=== PATIENT | female | born 1995 | race Caucasian/White ===

== ENCOUNTER 2022-07-17 14:42 | Outpatient (CLI) | payer OTHER, SELFPAY ==
--- NOTE | ~2022-07-17 | US_ITS ---
EXAMINATION: US retroperitoneal comp DATE: 07/17/2022 15:30 INDICATION: Right renal stone TECHNIQUE: Multiple grayscale and Doppler ultrasound images of the kidneys were obtained. COMPARISON: None. FINDINGS: The right kidney measures 9.6 x 3.8 x 4.3 cm. The left kidney measures 9.4 x 5.2 x 5.2 cm. The kidneys demonstrate normal parenchymal echogenicity. There is no hydronephrosis. The bladder is i ncompletely distended but normal in appearance. IMPRESSION: 1. Normal kidneys without hydronephrosis. Reviewed, dictated and finalized at location B.
--- NOTE | ~2022-07-17 | XR_ITS ---
EXAMINATION: XR abdomen/kub 1V DATE: 07/17/2022 15:10 INDICATION: Right kidney stone. Right flank pain. TECHNIQUE: A supine view of the abdomen on 2 radiographs was obtained. COMPARISON: CT abdomen and pelvis 12/02/2013 FINDINGS: There are no dilated loops of bowel. The kidneys are obscured by bowel. A 3 mm calcificatio n overlies right kidney. Surgical clips in the right upper quadrant are likely from cholecystectomy. There is internal fixation of right femur. IMPRESSION: 1. 3 mm calcification overlying right kidney that may be a right kidney stone. Reviewed, dictated and finalized at location A.
== END 2022-07-17 14:43 | disposition home or self-care (01) ==
PROVIDERS: Visit Provider Nurse Practitioner Adult Health
DX: N20.0 Calculus of kidney (principal)
CPT/HCPCS: 74018; 76770

== ENCOUNTER 2022-07-28 13:13 | Outpatient (CLI) | payer OTHER, SELFPAY ==
--- NOTE | ~2022-07-28 | CT_ITS ---
EXAMINATION: CT abdomen pelvis wo con DATE: 07/28/2022 13:48 INDICATION: Right flank pain which started on 07/14/2022. Diminished appetite. TECHNIQUE: Computed tomography (CT) of the abdomen and pelvis was performed without intravenous contr ast. Automated exposure control and iterative reconstruction technique were employed. Exam dose: 370 .93 mGy-cm total exam DLP. COMPARISON: 07/17/2022 retroperitoneal ultrasound examination 12/02/2013 CT abdomen pelvis noncontrast examination FINDINGS: The lung bases are clear. Normal heart size. No pericardial or pleural effusion. Status post cholecystectomy. The liver, spleen, pancreas, bile ducts and pancreatic duct are unremark able. Normal morphology of the adrenal glands. Approximately 4 mm nonobstructing upper pole right renal calculus. No other urinary tract calculus or hydroureteronephrosis of either kidney is noted. The urinary bladder is unremarkable. Uterus and adn exal areas are unremarkable. Normal caliber of the abdominal aorta. No intraperitoneal or retroperitoneal or pelvic mass lesion or adenopathy or ascites. No bowel obstruction, bowel wall thickening, pneumatosis or intraperitoneal free air. There is an intramedullary silas in the right femur and the tract of a former intramedullary silas of the left femur. No suspicious osteolytic or osteoblastic lesions. IMPRESSION: 4 mm nonobstructing upper pole right renal calculus Status post cholecystectomy Reviewed, dictated and finalized at Location A. Reviewed, dictated and finalized at location A.
== END 2022-07-28 13:14 | disposition home or self-care (01) ==
PROVIDERS: PCP Internal Medicine; Visit Provider Nurse Practitioner Adult Health
DX: N20.0 Calculus of kidney (principal); Z90.49 Acquired absence of other specified parts of digestive tract
CPT/HCPCS: 74176

== ENCOUNTER 2022-08-28 01:36 | Day surgery (SDC) | payer OTHER, SELFPAY ==
[2022-08-17 17:57] VITALS: BMI 22.6
--- NOTE | 2022-08-17 18:20 | PC.NURSE ---
Report to the Outpatient Waiting Room, entrance under the green pavilion located off [facility], at time 0930 on date 08/28/2022. Planned Procedure Time: 1130. Time changes happen often and if your time is changed the preop area will call you the afternoon before. - You and your visitor will be asked to self-screen and do not enter if you have any COVID symptoms. - Only one visitor is requested with a max of two and NO children visitors are allowed at this time. - The patient visitor may be requested to leave or wait in car when not with patient due to distancing restrictions. - A mask is optional within the hospital. Patients may have clear liquids (water, carbonated beverages, clear teas, apple juice) until 3 hours prior to surgery with a maximum of 20 ounces. 0830 - No food from midnight until time of surgery - Infants may have breast milk until 4 hours before surgery, formula 6 hours prior to surgery. - Children will be allowed to drink immediately following surgery. If applicable, please bring a bottle or sippy cup to assist with drinking. Juice, water, soda, and popsicles are readily available. For infants on formula, please bring formula the day of surgery. Pacifiers are allowed. Take the following medications with a SIP of water the morning of surgery: claudette, tramadol, effexor Medications to discontinue per physician multivitamine, supplements, fish oil Date to take last dose 08/25/22 Please no make-up, nail lithuanian, hairspray, perfume, deodorant, or body powder the day of surgery. No jewelry (including any body piercings) or valuables the day of surgery, leave them at home. Please take a shower or bath the night before, or the morning of, surgery with an antibacterial soap. Wear comfortable, loose fitting clothing. Children are encouraged to wear pajamas. - Jewelry must be removed prior to entering the operating room. Rings and piercings that are not removed may be cut off. - The hospital will not accept responsibility for valuables. - Please leave all valuables, including medications, at home the day of surgery. If you are going home after surgery, a licensed distribution driver must drive you home. - NO public transportation without another adult if you receive anesthesia. - We recommend that an adult stay with you for 24 hours following discharge. - We also recommend that you do not drive, make important decision, drink alcoholic beverages, or take any drugs that were not prescribed by your health care provider for at least 24 hours after your discharge time. For Pediatric surgeries, we recommend two adults accompany the child home. Follow any additional instructions given to you from your surgeon. If you or anyone in your household have experienced Covid symptoms in the past week, please notify your surgeon or the nurse liaison at the phone number below for possible testing. Telephone instructions given to Bethany Meléndez and asked if any additional questions and then verbalized understanding. Patient advised to call surgeon office or pre surgery nurse liaison [phone] if any additional questions.
--- NOTE | 2022-08-18 07:42 | PM.HPGS ---
History of Present Illness History of Present Illness Consent: Risks, benefits, and alternatives have been discussed and questions answered. Patient agrees to proceed with procedure. Chief complaint: Rt Renal Stone Narrative: Bethany Meléndez is a 27 year old female Who has had 1 episode of urolithiasis in the past. She now has a persistent cyst, somewhat atypical right flank pain. Imaging demonstrates a nonobstructing calcified 4 mm right renal calculus. Exhaustive evaluation for other causes of pain have been unyielding. In light of that we decided to proceed with right ESWL. She is aware of the risk including, but not limited to, residual fragments that were a require additional intervention, postoperative hematuria and perinephric hematoma Review of Systems Review of Systems: All systems reviewed & are unremarkable except as noted in HPI and below PMFSH Family History Family History (Updated 04/24/16 @ 23:21 by DOCTOR UNKNOWN) Mother Depression Patient's mother is in good health Family history of allergic disorder Family history of restless legs syndrome Father Patient's father is in good health Sibling Patient's brother is in good health Grandparent Family history of Alzheimer's disease Family history of malignant neoplasm of uterus, Onset Age: 72 Family history of malignant neoplasm of thyroid, Onset Age: 60 Social History Social History Smoking status: Never smoker Alcohol intake: never Living arrangements: with family Spiritual care concerns: No Meds Home Medications and Allergies Home Medications Medication Instructions Recorded Confirmed Type Adult Multi plus [place]-3 1 tab-cap PO BID 08/17/22 08/17/22 History Adults Multivitamin 1 tab-cap PO DAILY 08/17/22 08/17/22 History brompheniramine-phenylpropanolamine 1 tablet PO DAILY 08/17/22 08/17/22 History 4 mg-25 mg tablet calcium-vitamin D3 1 tablet PO DAILY 08/17/22 08/17/22 History cetirizine 10 mg capsule (Zyrtec) 10 mg PO HS 08/17/22 08/17/22 History cyclobenzaprine 10 mg tablet 10 mg PO TID PRN spasm 08/17/22 08/17/22 History dicyclomine 20 mg tablet 20 mg PO Q6H PRN Spasms 08/17/22 08/17/22 History drospirenone 3 mg-ethinyl 1 tablet PO DAILY 08/17/22 08/17/22 History estradiol 0.03 mg tablet (Marley) famotidine 20 mg tablet 20 mg PO BID 08/17/22 08/17/22 History fexofenadine 30 mg tablet 30 mg PO DAILY 08/17/22 08/17/22 History montelukast 10 mg tablet 10 mg PO HS 08/17/22 08/17/22 History (Singulair) tramadol 50 mg tablet 50 mg PO Q6H PRN Pain 08/17/22 08/17/22 History venlafaxine 75 mg capsule,extended 75 mg PO DAILY 08/17/22 08/17/22 History release 24 hr Allergies Allergy/AdvReac Type Severity Reaction Status Date / Time cephalexin Allergy Hives Verified 08/17/22 17:42 latex Allergy Hives Verified 08/17/22 17:42 mold Allergy Nasal Verified 08/17/22 17:42 Discharge red dye Allergy Hives Verified 08/17/22 17:42 morphine AdvReac Mild itching Verified 08/17/22 17:42 adhesive tape AdvReac Rash Verified 08/17/22 17:56 ENVIRONMENTAL ALLERGENS Allergy Mild Nasal Uncoded 08/17/22 17:42 Discharge Exam Const: General: no acute distress Resp: Effort & Inspection: normal respiratory effort GI: Inspection: non-distended GI Palp: No abdominal tenderness and No Guarding due to palpation present (GI) Auscultation: normal bowel sounds Assessment and Plan Assessment and plan (1) Right renal stone: Code(s): N20.0 - Calculus of kidney Status: Acute Assessment and Plan: Right ESWL
[2022-08-28] VITALS (11 sets, daily range): BP systolic 116–132; BP diastolic 76–95; PULSE 90–108; RESP 6–18; TEMP 36.6; O2SAT 97–100
--- NOTE | ~2022-08-28 | XR_ITS ---
XR fluoroscopy no charge Clinical information: Stone extraction. TECHNIQUE: Fluoroscopy used during right stone extraction performed by [Rashel Mas MD] o n 08/28/2022. 24 seconds of fluoroscopy time with 1 images captured. ] FINDINGS: Correlate with procedure note. IMPRESSION: Fluoroscopy used during stone extraction procedure. Reviewed, dictated and finalized at location A. TH PROGRAM ANALYST
--- NOTE | 2022-08-28 06:45 | WPDHPUPDATE1 ---
History and Physical Update Update Date/Time: 08/28/22 06:45 History and Physical has been reviewed, including an updated exam of the patient. There are NO changes in the patient's condition. Risks, benefits, and alternatives have been discussed and questions answered. Patient agrees to proceed with procedure.
--- NOTE | 2022-08-28 10:20 | WPDANESEPPF ---
Anes - Initial Pre Proc Eval Procedure: Operation Date: 08/28/22 11:30 Proposed Procedures p Right Extracorporeal Shock Wave Lithotripsy - Rashel Mas MD s Cystoscopy with Possible Right Stent Placement - Rashel Mas MD Date/Time: 08/28/22 10:20 Surgeon: Rashel Mas MD Pre Op Diagnosis: Rt Renal Stone Patient Data Age: 27 Gender: F Height: 1.68 m Weight: 63.6 kg Allergies Allergy/AdvReac Type Severity Reaction Status Date / Time cephalexin Allergy Hives Verified 08/17/22 17:42 latex Allergy Hives Verified 08/17/22 17:42 mold Allergy Nasal Verified 08/17/22 17:42 Discharge red dye Allergy Hives Verified 08/17/22 17:42 morphine AdvReac Mild itching Verified 08/17/22 17:42 adhesive tape AdvReac Rash Verified 08/17/22 17:56 ENVIRONMENTAL ALLERGENS Allergy Mild Nasal Uncoded 08/17/22 17:42 Discharge Home Medications Medication Instructions Recorded Confirmed Type Adult Multi plus [place]-3 1 tab-cap PO BID 08/17/22 08/17/22 History Adults Multivitamin 1 tab-cap PO DAILY 08/17/22 08/17/22 History brompheniramine-phenylpropanolamine 1 tablet PO DAILY 08/17/22 08/17/22 History 4 mg-25 mg tablet calcium-vitamin D3 1 tablet PO DAILY 08/17/22 08/17/22 History cetirizine 10 mg capsule (Zyrtec) 10 mg PO HS 08/17/22 08/17/22 History cyclobenzaprine 10 mg tablet 10 mg PO TID PRN spasm 08/17/22 08/17/22 History dicyclomine 20 mg tablet 20 mg PO Q6H PRN Spasms 08/17/22 08/17/22 History drospirenone 3 mg-ethinyl 1 tablet PO DAILY 08/17/22 08/17/22 History estradiol 0.03 mg tablet (Marley) famotidine 20 mg tablet 20 mg PO BID 08/17/22 08/17/22 History fexofenadine 30 mg tablet 30 mg PO DAILY 08/17/22 08/17/22 History montelukast 10 mg tablet 10 mg PO HS 08/17/22 08/17/22 History (Singulair) tramadol 50 mg tablet 50 mg PO Q6H PRN Pain 08/17/22 08/17/22 History venlafaxine 75 mg capsule,extended 75 mg PO DAILY 08/17/22 08/17/22 History release 24 hr Patient hx anesthesia problems: none Family hx anesthesia problems: none Results Review: All pre-operative results and documents have been reviewed as part of the pre-operative evaluation. [facility] Family History Family History Mother Depression Patient's mother is in good health Family history of allergic disorder Family history of restless legs syndrome Father Patient's father is in good health Sibling Patient's brother is in good health Grandparent Family history of Alzheimer's disease Family history of malignant neoplasm of uterus, Onset Age: 72 Family history of malignant neoplasm of thyroid, Onset Age: 60 Social History Social History Smoking status: Never smoker Alcohol intake: never Living arrangements: with family Spiritual care concerns: No Anes - Eval Final PreProcedure Day of Procedure 08/28/22 10:20 Patient weight: normal Heart: regular rate and rhythm Lungs: clear to auscultation Airway: Mallampati scale class III and special considerations poor opening Neurological: alert and oriented Last oral intake: >/= 8 hours ASA classification: III Emergent: no Anesthetic plan: proceed Anesthesia type and monitoring: general LMA and standard monitoring Results Review: All pre-operative results and documents have been reviewed as part of the pre-operative evaluation. Informed Consent: The patient's anesthetic plan and its attendant risks and benefits were discussed with the patient/family/POA. Questions were solicited and answers provided to the satisfaction of the patient/family/POA.
[2022-08-28] MEDS: LACTATED RINGERS 1,000 ML 30 ML IV CONT ×2 (10:30→13:12)
[2022-08-28 11:08] LABS: Beta HCG Quantitative < 2.39 mIU/ML
[2022-08-28] MEDS: levoFLOXacin 500 MG/D5W 100 ML 500 MG/100 ML BAG 100 MG IVPB (11:08)
[2022-08-28 11:11] LABS: INR 1.1; Prothrombin Time 13.8 Seconds (11.1-14.7)
[2022-08-28 11:12] LABS: Partial Thromboplastin Time 26.8 SECONDS (22.3-36.8)
--- NOTE | 2022-08-28 11:36 | W.PM.PROC2 ---
Procedure Note - Detailed Date of Procedure 08/28/22 Pre-op Diagnosis Rt Renal Stone Post-op Diagnosis Same Procedure Performed Cystoscopy, right ureteroscopy with stone extraction Surgeon Rashel Mas MD Anesthesia General Description of Procedure The patient was brought to the operative suite where she is prepped and draped in a routine sterile fashion while in the dorsal lithotomy position after the uneventful induction of a general LMA anesthetic. A 19F rigid cystoscope was placed in the bladder. The patient had no evidence of urethral stricture or bladder neck contracture. The bladder mucosa was endoscopically normal without hyperemia or neoplasm. There was a single, orthotopic ureteral orifice bilaterally. A 0.035 glidewire was advanced into the right renal pelvis under fluoroscopy. The distal ureter was dilated with an 8F/10F ureteral dilator. Ureteroscopy was undertaken with a 7.5F flexible ureteroscope and the 3-4mm right upper calyceal stone was extracted with ease using a 1.9F Escape disposable stone basket. Due to the ease of this manipulation I opted not to place a ureteral stent. The patient's bladder was emptied and was taken to the recovery room having tolerated this procedure well. Drains No Packing Yes Pathology Yes Complications No immediate complications Condition Stable
[2022-08-28] MEDS: ONDANSETRON INJ 4 MG/2 ML VIAL IV PUSH (11:42)
[2022-08-28] MEDS: fentaNYL CITRATE INJ (*CRX) 100 MCG/2 ML VIAL 25 MCG IV PUSH ×8 (11:45→13:01)
[2022-08-28] MEDS: MIDAZOLAM HCL (*CRX) 2 MG/2 ML VIAL 1 MG IV PUSH (11:59)
[2022-08-28] MEDS: MEPERIDINE HCL INJ (*CRX) 50 MG/ML AMPUL IV PUSH (12:47)
[2022-08-28] MEDS: oxyCODONE HCL (*CRX) 5 MG TAB IR PO (13:32)
== END 2022-08-28 14:50 | disposition home or self-care (01) ==
PROVIDERS: Anesthesiology; PCP Internal Medicine; Visit Provider Urology
PROC: (CPT 50590; principal; 2022-08-28 11:30)
DX: N20.0 Calculus of kidney (principal)
CPT/HCPCS: 52352; 36415; 82365; 84702; 85610; 85730; 88300; 99199; A9270; C1769; J1100; J1885; J1956; J2175; J2250; J2405; J2704; J3010; J7030; J7120

== ENCOUNTER 2022-08-30 09:16 | Emergency (ER) | payer OTHER, SELFPAY ==
--- NOTE | ~2022-08-30 | CT_ITS ---
EXAMINATION: CT abdomen pelvis wo con DATE: 08/30/2022 11:30 INDICATION: CT dated 07/28/2022 TECHNIQUE: Computed tomography (CT) of the abdomen and pelvis was performed without intravenous contr ast. The dose-length product was 505.57 mGy-cm. Automated exposure control and iterative reconstructi on technique were employed. COMPARISON: CT dated 07/28/2022 FINDINGS: Lung bases are unremarkable. Heart size normal. No pleural or pericardial effusions. There are cholecystectomy clips. The liver, spleen, pancreas, adrenal glands and left kidney are unremarkab le. There is a 2 mm stone in the lower pole of the right kidney. There are cholecystectomy clips. The re is a normal amount of extraluminal gas anterior to the right ureter, image [id number]. This may relate to recent ureteroscopy. No significant abnormal free fluid. There is a small fat-containing umbilical hernia. Nonobstructive bowel gas pattern. Moderate colonic fecal loading. There is mild right urothe lial thickening. There is an intramedullary silas in the right femur, partially visualized. No focal ly tic or sclerotic lesions IMPRESSION: 1. Mild right urothelial thickening proximally with small amount of extraluminal gas anterior to the right ureter in the upper abdomen, possibly related to recent ureteroscopy. 2: Punctate nonobstructing 2 mm right renal stone . Reviewed, dictated and finalized at location A. MILL SUPERVISOR IMPRESSION: 1. Mild right urothelial thickening proximally with small amount of extralumina l gas anterior to the right ureter in the upper abdomen, possibly related to re cent ureteroscopy. 2: Punctate nonobstructing 2 mm right renal stone .
[2022-08-30 09:16] VITALS: BP 147/102; PULSE 92; RESP 17; TEMP 36.9; O2SAT 100
[2022-08-30 09:29] LABS: Basophils Absolute Auto 0.1 K/mm3 (0.0-0.1); Basophils Percent Auto 0.9 % (0.2-1.2); Eosinophils Absolute Auto 0.2 K/mm3 (0-0.3); Eosinophils Percent Auto 2.5 % (0-4.4); Hematocrit 34.3 % (37.0-47.0); Hemoglobin 11.1 g/dL (12.0-15.0); Immature Granulocyte Absolute 0.03 K/mm3 (0.00-0.031); Immature Granulocyte Percent A 0.4 % (0-0.5); Lymphocytes Absolute Auto 3.63 K/mm3 (0.9-3.2); Lymphocytes Percent Auto 52.7 % (18.3-44.2); Mean Corpuscular HGB Conc 32.4 g/dl (32-36); Mean Corpuscular Hemoglobin 30.7 pg (26-34); Mean Platelet Volume 8.9 fl (7.4-10.4); Monocytes Absolute Auto 0.5 K/mm3 (0.1-0.6); Monocytes Percent Auto 7.5 % (2.6-8.5); Neutrophils Absolute Auto 2.5 K/mm3 (1.3-6.7); Platelet Count Result 237 k/mm3 (150-375); Red Blood Count 3.61 M/mm3 (4.2-5.4); Red Cell Distribution Width 13.2 % (11.5-14.5); White Blood Count 6.9 K/mm3 (4.5-10.0)
[2022-08-30 09:40] LABS: Alanine Aminotransferase 36 U/L (6-35); Alkaline Phosphatase 82 U/L (38-126); Anion Gap 7 mmol/L (8-16); Aspartate Amino Transferase 27 U/L (14-36); Bilirubin,Total 0.3 mg/dL (0.2-1.3); Blood Urea Nitrogen 7 mg/dL (7-17); Carbon Dioxide 25 mmol/L (22-30); Chloride 105 mmol/L (98-107); Estimated CRCL calculation 97 ml/min; Estimated Glomerular Filt Rate > 60; Glucose 98 mg/dL (65-110); Potassium 3.9 mmol/L (3.4-5.0); Sodium 137 mmol/L (137-145)
--- NOTE | 2022-08-30 09:57 | ED.ABDPAIN ---
HPI - Abdominal Pain General Chief Complaint: Abdominal Pain Stated Complaint: kidney stone Time Seen by Provider: 08/30/22 09:24 Source: patient and old records reviewed Mode of arrival: ambulatory Limitations: no limitations History of Present Illness HPI narrative: Patient is a 27-year-old female who presents the ED with report of right flank and abdominal pain. Patient underwent a cystoscopy with right ureteroscopy and stone extraction on Wednesday, 08/[address] Mas. Last night into today, she developed worsening pain to her R flank and R sided abdomen. She describes the pain as a spasm. She currently rates pain 7 out of 10 on the pain scale. Patient has also noticed blood in her urine and nausea. Denies any significant dysuria, vomiting. Denies fever or chills. She took 2 hydrocodone prior to arrival. Related Data Home Medications Medication Instructions Recorded Confirmed Adult Multi plus [place]-3 1 tab-cap PO BID 08/17/22 08/17/22 Adults Multivitamin 1 tab-cap PO DAILY 08/17/22 08/17/22 brompheniramine-phenylpropanolamine 1 tablet PO DAILY 08/17/22 08/17/22 4 mg-25 mg tablet calcium-vitamin D3 1 tablet PO DAILY 08/17/22 08/17/22 cetirizine 10 mg capsule (Zyrtec) 10 mg PO HS 08/17/22 08/17/22 cyclobenzaprine 10 mg tablet 10 mg PO TID PRN spasm 08/17/22 08/17/22 dicyclomine 20 mg tablet 20 mg PO Q6H PRN Spasms 08/17/22 08/17/22 drospirenone 3 mg-ethinyl 1 tablet PO DAILY 08/17/22 08/17/22 estradiol 0.03 mg tablet (Marley) famotidine 20 mg tablet 20 mg PO BID 08/17/22 08/17/22 fexofenadine 30 mg tablet 30 mg PO DAILY 08/17/22 08/17/22 montelukast 10 mg tablet 10 mg PO HS 08/17/22 08/17/22 (Singulair) tramadol 50 mg tablet 50 mg PO Q6H PRN Pain 08/17/22 08/17/22 venlafaxine 75 mg capsule,extended 75 mg PO DAILY 08/17/22 08/17/22 release 24 hr Allergies Allergy/AdvReac Type Severity Reaction Status Date / Time Sulfa (Sulfonamide Allergy Severe Hives Verified 08/30/22 09:27 Antibiotics) cephalexin Allergy Hives Verified 08/30/22 09:27 latex Allergy Hives Verified 08/30/22 09:27 mold Allergy Nasal Verified 08/30/22 09:27 Discharge red dye Allergy Hives Verified 08/30/22 09:27 adhesive tape AdvReac Rash Verified 08/30/22 09:27 ENVIRONMENTAL ALLERGENS Allergy Mild Nasal Uncoded 08/30/22 09:27 Discharge Review of Systems Review of Systems: CONSTITUTIONAL: Denies fever, chills, or sweats. CARDIOVASCULAR: Denies chest pain. RESPIRATORY: Denies dyspnea. GASTROINTESTINAL: Reports R sided ABD pain, nausea. Denies vomiting, constipation, or diarrhea. GENITOURINARY: Reports hematuria. Denies dysuria. MUSCULOSKELETAL: Reports R flank pain. All systems reviewed & are unremarkable except as noted in HPI and below PMFSH Past Medical History Medical History (Updated 08/30/22 @ 12:27 by Chely Phipps PA-C) Shelly-Danlos syndrome Kidney stones Surgical History Surgical History (Updated 08/30/22 @ 12:25 by Chely Phipps PA-C) History of extraction of renal calculus History of surgery on lower extremity silas in R femur History of ureteroscopy Family History Family History Mother Depression Patient's mother is in good health Family history of allergic disorder Family history of restless legs syndrome Father Patient's father is in good health Sibling Patient's brother is in good health Grandparent Family history of Alzheimer's disease Family history of malignant neoplasm of uterus, Onset Age: 72 Family history of malignant neoplasm of thyroid, Onset Age: 60 Social History Social History Smoking status: Never smoker Alcohol intake: never Spiritual care concerns: No Exam Narrative: GENERAL: Well-nourished, non-toxic, in mild acute distress due to pain. HEAD: Normocephalic, atraumatic. NECK: Supple. No adenopathy, no masses. RESPIRA
--- NOTE | 2022-08-30 10:00 | PC.NURSE ---
patent unable to urinate at this time, will attempt again once fluids have been going.
[2022-08-30] MEDS: SODIUM CHLORIDE 0.9% IV 1,000 ML 999 ML IV CONT (10:06)
[2022-08-30] MEDS: ONDANSETRON INJ 4 MG/2 ML VIAL IV PUSH (10:07)
[2022-08-30] MEDS: MORPHINE SULFATE (*CRX) 4 MG/ML INJ IV PUSH (10:09)
[2022-08-30 10:11] VITALS: BP 123/89; PULSE 94; RESP 14; O2SAT 99
[2022-08-30 10:13] VITALS: BP 123/89; PULSE 94; RESP 14; O2SAT 99
[2022-08-30 11:22] LABS: Appearance Urine Clear (Clear); Bilirubin Urine Negative (Negative); Blood Urine 3+ (Negative); Color Urine Yellow (Yellow); Glucose Urine UA Negative (Negative); Ketones Urine Negative (Negative); Leukocyte Esterase Ur Negative LEU/UL (Negative); Nitrate Urine Negative (Negative); Protein Urine 1+ mg/dL (Negative); Urobilinogen Urine 0.2 mg/dL (<2.0)
[2022-08-30 11:38] LABS: Bacteria Urine Trace /hpf; Mucus Urine Rare /lpf; RBC Urine >75 /hpf (0-2); Squamous Epithelial Cell Urine Rare /hpf (Few); WBC Urine 0-3 /hpf
[2022-08-30 11:39] LABS: Add Urine Microscopic? YES
[2022-08-30 11:50] VITALS: BP 124/76; PULSE 97; RESP 18; O2SAT 100
[2022-08-30] MEDS: KETOROLAC 15 MG/ML VIAL (*BKC) IV PUSH (12:15)
== END 2022-08-30 12:51 | disposition home or self-care (01) ==
PROVIDERS: Emergency Medicine; Emergency Provider Physician Assistant; PCP Internal Medicine
DX: N20.0 Calculus of kidney (principal); Q79.60 Ehlers-Danlos syndrome, unspecified; Z87.442 Personal history of urinary calculi; R93.41 Abnormal radiologic findings on diagnostic imaging of renal pelvis, ureter, or bladder; Z98.890 Other specified postprocedural states
CPT/HCPCS: 36415; 74176; 80053; 81001; 81025; 85025; 96361; 96374; 96375; 99284; J1885; J2270; J2405; J7030

== ENCOUNTER 2025-01-10 07:38 | Emergency (ER) | payer OTHER, SELFPAY ==
--- OUTSIDE RECORDS SUMMARY | 2025-01-10 07:42 | XMS_ITS | Clinical Summary ---
Author Organization [facility] Address [address] [place] [address] Phone Care Team Providers Care Pattern Illustrator Name Role Phone Stephane Cade MD Primary Care Provider [phone] Allergies No known active allergies Medications omeprazole (PRILOSEC) 20 mg Oral TbECIndications: IBS (irritable bowel syndrome),Nausea with vomiting Take by mouth daily before breakfast. Active metoprolol succinate ER 24 hour (TOPROL XL) 25 mg Oral tabletIndication s:IBS (irritable bowel syndrome),Nausea with vomiting Take 25 mg by mouth daily. Active NORETH A-ET ESTRA/FE FUMARATE (LOESTRIN 24 FE ORAL)Indications :IBS (irritable bowel syndrome),Nausea with vomiting Take 1 Tab by mouth daily. Active fexofenadine (SUSANNA) 180 mg Oral tabletIndication s:IBS (irritable bowel syndrome),Nausea with vomiting Take 180 mg by mouth daily. Active multivitamin (DAILY-MIRANDA) Oral tabletIndication s:IBS (irritable bowel syndrome),Nausea with vomiting Take 1 Tab by mouth daily. Active BIOTIN ORALIndications: IBS (irritable bowel syndrome),Nausea with vomiting Take 1 Tab by mouth daily. Active CHOLECALCIFEROL, VITAMIN D3, (VITAMIN D-3 ORAL)Indications :IBS (irritable bowel syndrome),Nausea with vomiting Take 1 Tab by mouth daily. Active ONDANSETRON HCL (ZOFRAN ORAL)Indications :IBS (irritable bowel syndrome) Take by mouth. Active amitriptyline (ELAVIL) 10 mg Oral tablet Take 1 Tab by mouth daily at bedtime. 90 Tab 3 05/03/2012 Active Active Problems Problem Noted Date Diagnosed Date IBS (irritable bowel syndrome) 11/19/2011 Nausea with vomiting 11/19/2011 Social History Tobacco Use Types Packs/Day Years Used Date Smoking Tobacco: Never Alcohol Use Standard Drinks/Week Comments No 0 (1 standard drink = 0.6 oz pur e alcohol) Comments Unknown Sex and Gender Information Value Date Recorded Sex Assigned at Not on file Legal Sex Female 5:32 AM SOCIAL PSYCHOLOGIST Gender Identity Not on file Sexual Orientation Not on file Occupation Industry Job Start Date Job End Date Not on file Not on file Not on file Not on file Last Filed Vital Signs Vital Sign Reading Time Taken Comments Blood Pressure 122/66 05/03/2012 4:35 PM CDT Pulse 64 05/03/2012 4:35 PM CDT Temperature 37.3 C (99.1 F) 12/10/2011 7:22 AM CDT Respiratory Rate 16 12/10/2011 8:32 AM CDT Oxygen Saturation 100% 12/10/2011 8:32 AM CDT Inhaled Oxygen Concentration - - Weight 66.2 kg (146 lb) 05/03/2012 4:35 PM CDT Height 170.2 cm (5' 7 ) 05/03/2012 4:35 PM CDT Body Mass Index 22.87 05/03/2012 4:35 PM CDT Plan of Treatment Health Maintenance Due Date Last Done Comments DTAP/TDAP/TD VACCINES (1 - Tdap) 2013 HEPATITIS B VACCINES (1 of 3 - 19+ 3-dose series) 2013 HPV/Cotest (21-29) 2015 PAP SMEAR 2015 CERVICAL CANCER SCREENING 2024 HPV/Cotest (30-65) 2024 PAP SMEAR 2024 INFLUENZA VACCINE (#1) 2024 HPV VACCINES Aged Out No longer eligi ble based on patient's age to complete this topic PNEUMOCOCCAL VACCINE 0-49 YEARS Aged Out No longer eligible based on patient's age to complete this topic Advance Directives For more information, please contact: [phone] * Full Code (Latest Code Status on File) Date Activated Date Inactivated Comments 12/10/2011 7:13 AM 12/11/2011 2:01 AM Care Teams Pattern Illustrator Relationship Specialty Start Date End Date Stephane Cade MD [address] [place] [address] PCP - General Internal Medicine 11/19/11
--- OUTSIDE RECORDS SUMMARY | 2025-01-10 07:42 | XMS_ITS | Data Portability ---
Author Organization [place] [facility],, Tiffany price Address [address] [place] [address] Assessment Encounter Date Assessment Date Assessment LastModified by Organization Details LastModified Time 01/22/2023 01/22/2023 patient with a history of pots and mast cell activation. Will check some laboratory data and try to start her on Xolair.the indication for the Xolair is refractory urticaria. [email or web address] Not available 01/22/2023 14:36:04 Plan of Treatment Reminders Order Date Submit Date Provider Last Modified By Organization Details Last Modified Time Details Appointments None recorded. Lab tryptase, serum 2022 023 SRIDEVI [facility] (Centralized Electronic Ordering - All Locations), Patient Can Go To The Location Of Their Choice, 14:36:43 histamine, serum or plasma 2022 023 SRIDEVI [facility] (Centralized Electronic Ordering - All Locations), Patient Can Go To The Location Of Their Choice, 14:36:43 TSH + free T4, serum 2022 023 SRIDEVI [facility] (Centralized Electronic Ordering - All Locations), Patient Can Go To The Location Of Their Choice, 14:36:42 thyroid peroxidase (tpo) Ab, serum 2022 023 SRIDEVI [facility] (Centralized Electronic Ordering - All Locations), Patient Can Go To The Location Of Their Choice, 14:36:44 thyroglobul in Ab, serum 2022 023 SRIDEVI [facility] (Centralized Electronic Ordering - All Locations), Patient Can Go To The Location Of Their Choice, [address] 14:36:44 Referral None recorded. Procedures None recorded. Surgeries None recorded. Imaging None recorded. Medication Orders None recorded. Patient TargetsNo targets recorded. Patient Instructions Encounter Date Encounter Id Patient Instructions Last Modified By Organization Details Last Modified Time 01/22/2023 [id number] hypothyroidism: care instructions bobby Not available 01/22/2023 12:15:16 Reason for Referral None Reported. Results Created Date Observation Date Name Description Value Unit Range Abnormal Flag Note LastModifiedBy Organization Detail LastModifiedTime 01/23/2001/23/2023 TSH+F REE T4 TSH 2.820 uIU/m L 0.450- 4.500 Not Available [facility] ([facility]) [address] [place], [address], 01/26/2023 14:36:42 01/23/2001/23/2023 TSH+F REE T4 T4,free(dire ct) 0.96 NG/dL 0.82-1 .77 Not Available [facility] ([facility]) [address] [place], [address], 01/26/2023 14:36:42 01/23/2001/24/2023 TRYPT ASE tryptase 4.8 ug/L 2.2-13 .2 Not Available [facility] ([facility]) [address] [place], [address], 01/26/2023 14:36:43 01/23/2001/26/2023 HISTA MINE, PLASM A histamine, plasma 0.70 NG/mL <1.00 Not Available [facility] ([facility]) [address] [place], [address], 01/26/2023 14:36:43 01/23/2001/25/2023 THYRO GLOBU KENDELL ANTIB JASON thyroglobuli n antibody <1.0 IU/mL 0.0-0. 9 Thyro globu kendell Antib jason measu red by Beckm an Coult er Metho dolog y Not Available [facility] ([facility]) [address], [place], [address], 01/26/2023 14:36:44 01/23/20 23 01/23/2023 THYRO ID PEROX IDASE (TPO) AB thyroid peroxidase (tpo) Ab 13 IU/mL 0-34 Not Available [facility] ([facility]) [address], [place], [address], 01/26/2023 14:36:44 Result Notes None recorded. Medical Equipment None Reported. Allergies Allergen ID Allergen Name Allergen Category Reaction Reaction Severity Criticality Documentation Date Start Date Code Code System Note Provider Name and Address Organization Details Recorded Time 82859 latex environme nt,medica tion Not available Not available Not available 01/22/2023 11031 91 RxNorm itcel verdin null, [place] [facility], 3 11:54:09 31343 cephalexi n medicatio n Not available Not available Not available 01/22/2023 2231 RxNorm itcel verdin null, [place] [facility], 3 11:55:03 32576 Substance with sulfonami de structure and antibacte rial mechanism of action (substanc e) medicatio n Not available Not available Not available 01/22/2023 90310 8003 SNOMED itcel verdin null, [place] [facility], 3 11:55:11 Vitals Date Recorded Body height Body mass index (BMI) Body weight Heart rate Oxygen saturation Oxygen saturation in Arterial blood by Pulse oximetry Respiratory rate Body temperature Systolic blood pressure Diastolic blood pressure Provider Name and Address Organization Details Last Updated DateTime 3 168.91 cm 26.2 kg/m2 00529.7 4 g 118 /min 99 % 99 % 20 /min 97.4 [degF] 126 mm[Hg] 86 mm[Hg] itcel verdin [place] [facility], 3 11:53:53 Social History Question Answer Notes LastModified by Organizat ion Details LastModified Time Tobacco Smoking Status Never Smoker itcel verdin null, [place] [facility], 01/22/2023 11:55:21 What Is Your Level Of Alcohol Consumption? None Information not available 01/22/2023 What Was The Date Of Your Most Recent Tobacco Screening? 01/22/2023 [email or web address] Information not available 01/22/2023 Do You Use Any Illicit Or Recreational Drugs? No [email or web address] Information not available 01/22/2023 Do You Or Have You Ever Used Any Other Forms Of Tobacco Or Nicotine? No [email or web address] Information not available 01/22/2023 Sex: Unknown Functional Status None recorded. Mental Status None recorded. Family History Nothing Reported. Medical History No medical history recorded. Gynecological HistoryNo gynecological history recorded. Obstetrics History GPAL:G 0 P 0 0 0 0 Past Encounters Encounter ID Performer Location Encounter Start Date Encounter Closed Date Diagnosis/Indication Diagnosis SNOMED-CT Code Diagnosis ICD10 Code Diagnosis Note [id number] Rashel lawrence MD OFFICE [address] [place] [id number] 01/22/2023 11:37:42 01/22/2023 12:33:32 Mast cell disorder 184953345 D89.44 Idiopathic urticaria 422 47578 L50.1 refractory urticaria in spite of antihistam ine blockade will start on Xolair Hypothyroidism 31806733 E03.9 Health Concerns Section Related Observation LastModified by Organization Detai ls LastModified Time None Recorded Concern Status LastModified by Organization Details LastModified Time None Recorded Advance Directives Directive None Recorded Payers Encounter Date Sequence Insurance Name Policy Number Policy Menendez Covered Member ID Menendez Member ID Guarantor Name 01/22/2023 2 [facility] [id number] Cuco Meléndez [id number] Bethany Meléndez 01/22/2023 1 [facility] [id number] Adali Meléndez [id number] Bethany Meléndez Notes Date Note Type Note Provider Name and Address Organization Details Recorded Time 01/22/2023 text/html Bethany is a delightful 27-year-old woman with a history of [place]. 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 She had a workup about 10 years ago for mastocytosis which was negative. But after she had a bug bite that got infected a year ago she feels like things have been activated. She has since seen Dr. Pathak who has placed her on antihistamines both H1 and H2 blockers. She is taking Miguelina 2 tablets per day and famotidine. In spite of these medications she continues to have daily hives. The hives are characterized as being itchy, erythematous, and relatively evanescent lasting for only a day or 2. These hives continue in spite of the aggressive antihistamine blockade. Rashel Warren MD [address], [place], [address], [facility], 01/22/2023 14:44:26 OBGyn Episode No OBEpisode recorded.
--- OUTSIDE RECORDS SUMMARY | 2025-01-10 07:42 | XMS_ITS | Clinical Summary ---
Author Organization [facility] Address [address] [place] [address] Care Team Providers Care [employer] Principal Name Role Phone Mervin Garcia MD Primary Care Provider [phone] Source Comments [facility],non-owned Affiliates and Associated Physician Practices is amultiple site organization consisting of ambulatory clinics and hospital sitesin [place], [place], [place] and [place]. This disclosure is being madepursuant to the Care Everywhere program and may not contain all information available regarding this patient. Last updated 18.[facility] Allergies Active Allergy Reactions Criticality Noted Date Comments Cephalosporins Rash Medium 04/13/2022 Latex Rash Medium 04/19/2018 Morphine Itching Low 07/18/2019 Sulfamethoxazole W-Trimethoprim Diarrhea,Vomiting Low 05/14/2021 Medications * Be aware that medications may not be up to date on this document. Alwaysverify current medications with the patient. Fexofenadine HCl (SUSANNA PO) Take 180 mg by mouth once daily Active albuterol HFA (Proventil; Ventolin; Proair) 108 (90 Base) MCG/ACT inhaler Inhale 2 (two) puffs by mouth every 4 hours as needed 3 Active ALPRAZolam (Xanax) 0.5 MG tablet Take 1 (one) tablet by mouth once daily as needed 4 Active B Complex Vitamins CAPS Take 1 capsule by mouth once daily Active EPINEPHrine (Epipen) 0.3 MG/0.3ML auto-injector pen Inject 0.3 mL into muscle once as needed for Anaphylaxis Active methocarbamol (Robaxin) 500 MG tablet Take 1 (one) tablet by mouth 3 times daily as needed for Muscle Spasms 4 Active Estarylla 0.25-35 MG-MCG tablet Take 1 (one) tablet by mouth once daily Active midodrine (Proamatine) 2.5 MG tablet Take 1 (one) tablet by mouth once daily as needed 3 Active Zepbound 2.5 MG/0.5ML injection Inject 2.5 (two and one-half) mg subcutaneously every 7 days 4 Active venlafaxine XR 24hr (Effexor XR) 75 MG capsule Take 1 (one) capsule by mouth once daily 3 Active naltrexone 1 MG capsule Take 1 (one) capsule by mouth 2 times daily 4 Active Nurtec 75 MG tablet Take 75 mg by mouth as directed 9 tablet 11 4 Active Active Problems Problem Noted Date Diagnosed Date 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 (AF LURIA, FLUZONE TRIVALENT; 6MO+) (IIV3) 07/03/2012 FLU VACCINE TRI IIV3 SPLIT PF IM (FLUVIRIN) 09/2010,06/27/2010 INFLUENZA VACCINE 06/01/2019 INFLUENZA VACCINE, QUADR. (F LUZONE; FLULAVAL; FLUARIX; AFLURIA QUADRIVALENT; 6MO+), 0.5 ML (IIV4) 06/09/2019 Influenza Intradermal 06/27/2014 Family History Medical History Relation Name Comments Other Mother Migraines,Norberto chapis's,MVP,Anemia, Relation Name Status Comments Brother Alive x1 Healthy Father Alive liver transplan t Mother Alive Thyroid CA,RLS, PCO,gastric bypass,Back surg x2 Social History Tobacco Use Types Packs/Day Years Used Date Smoking Tobacco: Never Smokeless Tobacco: Never Alcohol Use Standard Drinks/Week Comments No 0 (1 standard drink = 0.6 oz pur e alcohol) Comments No Sex and Gender Information Value Date Recorded Sex Assigned at Not on file Legal Sex Female 10:30 AM CDT Gender Identity Not on file Sexual Orientation Not on file 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 Not on file Not on file Not on fi le Last Filed Vital Signs Vital Sign Reading Time Taken Comments Blood Pressure 112/77 06/06/2024 11:09 AM CDT Pulse 98 06/06/2024 11:09 AM CDT Temperature 37.2 C (98.9 F) 06/28/2016 3:48 PM CDT Respiratory Rate 20 06/28/2016 3:48 PM CDT Oxygen Saturation 99% 08/17/2014 12:13 PM PRIMER BOXER Inhaled Oxygen Concentration - - Weight 61.2 kg (135 lb) 06/06/2024 11:09 AM CDT Height 167.6 cm (5' 6 ) 06/06/2024 11:09 AM CDT Body Mass Index 21.79 06/06/2024 11:09 AM CDT Plan of Treatment Upcoming Encounters Date Type Department Care Team (Late st Contact Info) Description 06/06/2025 11:00 AM CDT Office Visit [facility] [address] [place] [address] Rupinder Marin, INDUSTRIAL RENDERER-PLATE COLORER [address] [place] [phone] Health Maintenance Due Date Last Done Comments PAP SMEAR 1994 HIV SCREENING 2009 HEPATITIS C SCREENING 04/09/2012 DTAP/TDAP/TD VACCINES (1 - Tdap) 2013 HEPATITIS B VACCINE (1 of 3 - 19+ 3-dose series) 2013 COVID-19 VACCINE (1 - season) 2024 DEPRESSION SCREENING 09/27/2024 INFLUENZA VACCINE (Season Ended) 2025 06/09/2019, 06/01/2019, 07/31/2014, Additional history exists ZOSTER VACCINE (1 of 2) 2044 HIB VACCINE Aged Out No longer eligi ble based on patient's age to complete this topic HPV VACCINE Aged Out No longer eligi ble based on patient's age to complete this topic MENINGOCOCCAL (Group B) VACCINE SHARED DECISION-MAKING Aged Out No longer eligible based on patient's age to complete this topic MENINGOCOCCAL GROUPS A/C/Y/W VACCINE Aged Out No longer eligible based on patient's age to complete this topic PNEUMOCOCCAL VACCINE Aged Out No long er eligible based on patient's age to complete this topic Insurance HEALTH CARE HEALTH CARE Advance Directives * Full Code (Latest Code Status on File) Date Activated Date Inactivated Comments 08/11/2014 1:17 AM 08/17/2014 2:25 PM Care Teams High School Principal Relationship Specialty Start Date End Date Mervin Garcia MD [address] [address] PCP - General 09/04/22
--- OUTSIDE RECORDS SUMMARY | 2025-01-10 07:42 | XMS_ITS | Data Portability ---
Author Organization [facility] [place] Address [address] [place] [address] Care Team Providers Care Outside Salesperson Name Role Phone ADELINE ELLIOTT Primary Care Provider Assessment Encounter Date Assessment Date Assessment LastModified by Organization Details LastModified Time 12/23/2022 12/23/2022 TSH, T4 T3 CBC A1C we discussed BTB, not dangerous, normal pelvic exam. most likely due to chronic medical illness/stres s of last 6 mos. if persists again and does not resolve with going off active pills for 7 days, can call and would do double pills with taper. discussed many reasons for her to have weight gain- on disability, inactivity, new medications, steroid usage. WWE 6 mos, rebecca schedule. Not available 12/25/2022 21:14:31 Plan of Treatment Reminders Order Date Submit Date Provider Last Modified By Organization Details Last Modified Time Details Appointments None recorded. Lab CBC w/ auto diff 2022 023 [facility] (Lab), [address], [place], [address], 3 05:44:11 HbA1c (hemoglobi n A1c), blood 2022 023 [facility] (Lab), [address], [place], [address], 3 05:44:12 free T3, quantitati ve, dialysis serum or plasma 2022 023 [facility] (Lab), [address], [place], [address], 3 05:44:13 T4, free, serum 2022 023 [facility] (Lab), [address] [facility], [place], [address], 3 05:44:13 TSH, serum or plasma 2022 023 [facility] (Lab), [address] [facility], [place], [address], 3 05:44:12 Referral None recorded. Procedures None recorded. Surgeries None recorded. Imaging None recorded. Medication Orders None recorded. Patient TargetsNo targets recorded. Patient InstructionsNo instructions recorded. Reason for Referral None Reported. Problems Name Problem SNOMED Code Status Onset Date Resolution Date Notes Provider Name and Address Organization Details Recorded Time Postural orthostati c tachycardi a syndrome 048767264 Active 2022 Dulce Lorenzo MD [address], [place], [address], [facility] 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 3 21:08:43 Gastroesop hageal reflux disease 937166618 Active 2022 Dulce Lorenzo MD [address], [place], [address], [facility] 3 21:08:57 History of gastric ulcer 789076142 Active 2022 Dulce Lorenzo MD [address], [place], [address], [facility] 3 21:09:07 Euthyroid with thyroid antibodies 802339679 Active 2022 Dulce Lorenzo MD [address], [place], [address], [facility] 3 21:14:31 Problem Notes None recorded. Procedures Surgical History Date Name Laterality Status Provider Name and Address Organization Details Recorded Time 09/27/19 22 Date of Last Pap Smear completed [facility] 12/23/2022 15:30:20 09/27/19 19 cholecystectomy completed [facility] 12/23/2022 15:28:15 Imaging Results None recorded. Procedure Notes None recorded. Medical Equipment None Reported. Allergies Allergen ID Allergen Name Allergen Category Reaction Reaction Severity Criticality Documentation Date Start Date Code Code System Note Provider Name and Address Organization Details Recorded Time Substance with sulfonami de structure and antibacte rial mechanism of action (substanc e) medicatio n Not available Not available Not available 12/23/2022 [address] [facility] 3 15:22:49 10854 cephalexi n medicatio n Not available Not available Not available 12/23/2022 2231 [facility] 15:23:10 23543 latex environme nt,medica tion Not available Not available Not available 12/23/2022 [address] [facility] 3 15:23:15 Medications Name Sig Start Date Stop Date Status Note LastModified by Organization Details LastModified Time cromolyn 50mg (rice-cell) #[id number] eaches active Not Available Not Available Not Available ketotifen 2mg #966329 tb tablets active Not Available Not Available N ot Available cyclobenzap rine 10 mg tablet active Not Available Not Available Not Available cromolyn 100 mg/5 mL oral concentrate 12/23 completed Not Available Not Available Not Available venlafaxine ER 37.5 mg capsule,ext ended release 24 hr active Not Available Not Available Not Available venlafaxine ER 75 mg capsule,ext ended release 24 hr active Not Available Not Available Not Available fluconazole 150 mg tablet active Not Available Not Available Not Available hydrocodone 5 mg-acetamin ophen 325 mg tablet TAKE ONE OR TWO TABLETS BY MOUTH EVERY 6 HOURS NEEDED FOR PAIN 12/23 completed Not Available Not Available Not Available dextroamphe tamine-amph etamine 10 mg tablet active Not Available Not Available No t Available penicillin V potassium 500 mg tablet TAKE 1 TABLET BY MOUTH FOUR TIMES DAILY UNTIL ALL TAKEN. 12/23 completed Not Available Not Available Not Available ciprofloxac in 500 mg tablet TAKE 1 TABLET BY MOUTH TWICE DAILY 12/23 completed Not Available Not Available Not Available tramadol 50 mg tablet active Not Available Not Available No t Available ketorolac 10 mg tablet TAKE 1 TABLET BY MOUTH EVERY 6 HOURS FOR 3 DAYS NEEDED FOR PAIN 12/23 completed Not Available Not Available Not Available dextroamphe tamine-amph etamine ER 20 mg 24hr capsule,ext end release 12/23 completed Not Available Not Available Not Available dicyclomine 20 mg tablet active Not Available Not Available Not Available cephalexin 500 mg capsule 12/23 completed Not Available Not Available Not Available pantoprazol e 40 mg tablet,nette yed release active Not Available Not Available Not Available triamcinolo ne acetonide 0.1 % topical ointment APPLY TOPICALLY TO THE AFFECTED AREA TWICE DAILY NEEDED FOR RASH 12/23 completed Not Available Not Available Not Available montelukast 10 mg tablet 12/23 completed Not Available Not Available Not Available midodrine 2.5 mg tablet active Not Available Not Available Not Available epinephrine 0.3 mg/0.3 mL injection, auto-inject or INJECT 1 PEN IN THE MUSCLE ONE TIME DIRECTED active Not Available Not Available No t Available methylpredn isolone 4 mg tablets in a dose pack FOLLOW PACKAGE DIRECTION S 12/23 completed Not Available Not Available Not Available albuterol sulfate HFA 90 mcg/actuati on aerosol inhaler INHALE 2 PUFFS EVERY 4 HOURS NEEDED FOR WHEEZING OR SHORTNESS OF BREATH active Not Available Not Available No t Available ondansetron 4 mg disintegrat ing tablet DISSOLVE 1 TABLET ON THE TONGUE THREE TIMES DAILY NEEDED 12/23 completed Not Available Not Available Not Available Marisel (28) 3 mg-0.03 mg tablet TAKE 1 TABLET BY MOUTH EVERY DAY active Not Available Not Available No t Available diazepam 5 mg tablet TAKE 1 TABLET BY MOUTH IN THE MORNING AND 2 TABLETS AT BEDTIME active Not Available Not Available No t Available Adderall XR 25 mg capsule,ext ended release TAKE 1 CAPSULE BY MOUTH EVERY MORNING active Not Available Not Available No t Available chlorhexidi ne gluconate 0.12 % mouthwash 12/23 completed Not Available Not Available Not Available dicyclomine active Not Available Not A vailable Not Available Flexeril active Not Available Not Avai lable Not Available Zyrtec active Not Available Not Availa ble Not Available Protonix active Not Available Not Avai lable Not Available Nurtec ODT 75 mg disintegrat ing tablet DISSOLVE 1 TABLET BY MOUTH NEEDED FOR HEADACHE. active Not Available Not Available No t Available Flowflex COVID-19 Antigen Home Test kit active Not Available Not Available Not Available quercetin active Not Available Not Naomi ilable Not Available Vitals Date Recorded Body height Body mass index (BMI) Body weight Systolic blood pressure Diastolic blood pressure Provider Name and Address Organization Details Last Updated DateTime 12/23/2022 167.64 cm 26.8 kg/m2 00334.33 g 122 mm[Hg] 77 mm[Hg] [facility] 15:22:42 Social History None recorded. Functional Status None recorded. Mental Status None recorded. Family History Relationship Description Onset Age of this Age Resolved Age Notes LastModified by Organization Details LastModified Time Maternal Grandmother Malignant tumor of breast [email or web address] Not available 2022 15:31:56 Maternal Grandmother Migdalia thyroiditis smcaley Not available 11/26 15:33:25 Maternal Grandmother Hypertensive disorder smcaley Not available 2022 15:34:10 Maternal Grandmother Malignant tumor of ovary smcaley Not available 2022 15:34:20 Maternal Grandmother Cyst of ovary smcaley Not available 2022 15:34:53 Maternal Grandmother Malignant neoplasm of uterus smcaley Not available 2022 15:35:07 Father Diabetes mellitus [email or web address] Not available 2022 15:32:04 Father Chronic hepatitis HepB smcaley Not available 2022 15:33:49 Father Hypercholest erolemia smcaley Not available 2022 15:34:02 Mother Migdalia thyroiditis smcaley Not available 11/26 15:33:25 Mother Hypercholest erolemia smcaley Not available 2022 15:34:02 Mother Cyst of ovary smcaley Not available 2022 15:34:53 Maternal Grandfather Migdalia thyroiditis smcaley Not available 11/26 15:33:25 Medical History Condition Response Allergies (Food, seasonal, environmental ) N Other Y Drug/Latex Allergies/Reactions N Breast Cancer N Blood Transfusion N Lung Disease N Dermatologic Disorders N Defects or Inherited Disease N Breast Problem N Gestational Diabetes N Hematologic disorders N Anesthesia Complications N History of STI N Deep Vein Thrombosis N Polycystic ovary syndrome Y Anxiety Disorder N Autoimmune disease N Arthritis N Polyps N Infertility N History of abnormal pap N Acid Reflux (GERD) N Cancer N Varicosities N Stroke N Neurologic/Epilepsy N Endometriosis N High Cholesterol N Headaches Y Fibromyalgia N Kidney Disease N Heart Problems N Thyroid Problems N Kidney or Bladder Problems N GI Problems N Eating Disorder N Anemia N Art (IVF or FET) N Psychiatric Illness N Ovarian Cancer N Diabetes N Pulmonary (TB, Asthma) N Hepatitis/Liver Disease N No Past Medical History N Eczema N Urinary Tract Infection N Abuse/Domestic Violence N Asthma N Trauma/Violence N Depression/ depression N Heart Disease N Pre-Eclampsia N Hypertension N Osteoporosis N Thrombophilias N Gynecological History Statement/Question Response Age of first menstrual cycle 11 Date of Last Pap Smear 09/27/2021 Current Control Method BCPs Date of LMP 11/08/2022 Obstetrics History GPAL:G 0 P 0 0 0 0 Past Encounters Encounter ID Performer Location Encounter Start Date Encounter Closed Date Diagnosis/Indication Diagnosis SNOMED-CT Code Diagnosis ICD10 Code Diagnosis Note [id number] Dulce Lorenzo MD [place] [address] [address] 12/23/2022 15:06:24 12/25/2022 22:04:00 Weight gain 1760426 R63.5 Polycystic ovary syndrome 462950949 E28.2 Euthyroid with thyroid antibodies 387183189 E07.81 Break-thro ugh bleeding 54661307 N92.1 Surveillan ce of oral contraception 946386803 Z30.41 Health Concerns Section Related Observation LastModified by Organization Detai ls LastModified Time None Recorded Concern Status LastModified by Organization Details LastModified Time None Recorded Advance Directives Directive None Recorded Payers Encounter Date Sequence Insurance Name Policy Number Policy Menendez Covered Member ID Menendez Member ID Guarantor Name 12/23/2022 1 [facility] [id number] [employer] [id number] [employer] 12/23/2022 2 [facility] [employer] [id number] [employer] Notes Date Note Type Note Provider Name and Address Organization Details Recorded Time 12/23/2022 text/html Patient is a 27y o G0 who presents for irregular bleeding and weight gain. She has had a lot of medical issues lately. She is not currently sexually active. On OCP continuously, occasionally takes 2-7 days off if having BTB, but now no matter what she is doing having BTB since May. For a few mos, was almost daily. For the last few mos now, just a little BTB. She has also gained 30# since September. She has a history of PCOS, EDS-hypermobile, recently diagnosed mast cell activation disorder, and POTS. she also has hashimotos antibodies, but never on thyroid meds. Has been on medical leave for all of this since july. Concerns: last WWE:2021 Depression: yes, on effexor Domestic violence:denies Dulce Lorenzo MD [address], [place], [address], [facility] 12/25/2022 21:15:30 OBGyn Episode No OBEpisode recorded.
--- OUTSIDE RECORDS SUMMARY | 2025-01-10 07:42 | XMS_ITS | Encounter Summary ---
Author Organization [employer] Address [address] [place] [address] Care Team Providers Care Professional Nursing Tutor Name Role Phone Stephane Cade MD Primary Care Provider [phone] Encounter Details Date Type Department Care Team (Late st Contact Info) Description 11/17/2006 Outpatient Historical [facility] [place], MADAI [address] [address] [place], Authorized P NO ADDRESS ON FILE Depressive Disorder, not Elsewhere Classified (Primary Dx) Social History Tobacco Use Types Packs/Day Years Used Date Smoking Tobacco: Never Assessed Comments Unknown Sex and Gender Information Value Date Recorded Sex Assigned at Not on file Legal Sex Female 5:32 AM [employer] Gender Identity Not on file Sexual Orientation Not on file documented as of this encounter Plan of Treatment Not on file documented as of this encounter Visit Diagnoses Diagnosis Depressive disorder, not elsewhere classified- Primary documented in this encounter Care Teams Professional Nursing Tutor Relationship Specialty Start Date End Date Stephane Cade MD [address] [place] [address] PCP - General Internal Medicine 11/19/11 documented as of this encounter
--- OUTSIDE RECORDS SUMMARY | 2025-01-10 07:42 | XMS_ITS | Referral Summary ---
Author Organization [facility] Address [address] [place] [address] Care Team Providers Care Vp Information Technology Name Role Phone Stephane Cade MD Unavailable [phone] Mervin Garcia MD Primary Care Provider [phone] Allergies Active Allergy Reactions Criticality Noted Date Comments Adhesive Itching,Rash Medium 07/20/2019 pulls my skin off Cephalosporins Rash Medium 04/13/2022 Latex Rash Medium 04/19/2018 Morphine Itching Low 07/18/2019 Other Hives Medium 10/25/2018 Dust mites Red Dye Chills,Fatigue,Flus pedro pablo (skin),Hives,Itchin g,Rash,Redness,Swea ting,Urticaria Medium 04/13/2022 Sulfamethoxazole-Trimetho prim Diarrhea,Vomiting Low 05/14/2021 Medications fexofenadine (SUSANNA) 180 mg tablet Take 1 tablet (180 mg total) by mouth daily Active famotidine (PEPCID) 20 mg tablet Take 1 tablet (20 mg total) by mouth as needed Active venlafaxine XR (EFFEXOR-XR) 75 mg 24 hr capsuleIndicatio ns:POTS (postural orthostatic tachycardia syndrome) Take 1 capsule (75 mg total) by mouth daily 90 capsule 3 3 Active rimegepant (Nurtec ODT) tablet,disintegr atingIndications :POTS (postural orthostatic tachycardia syndrome) Take 1 tablet (75 mg total) by mouth as needed (headache) 16 tablet 11 3 Active albuterol HFA (ProAir HFA) 90 mcg/actuation inhaler Inhale 2 puffs every 4 (four) hours as needed for wheezing or shortness of breath 8.5 g 1 3 Active Additional Information Patient not taking.Reported on 08/29/2024 EPINEPHrine 0.3 mg/0.3 mL auto-injection syringe As needed Active cyanocobalamin, vitamin B-12, (VITAMIN B-12 ORAL) Take 2,500 mg by mouth Active cholecalciferol, vitamin D3, (VITAMIN D3 ORAL) Take 5,000 Int'l Units/1.7m2 by mouth Active pyridoxine HCl, vitamin B6, (VITAMIN B-6 ORAL) Take 100 mg by mouth Active tretinoin (RETIN-A) 0.05 % cream Apply to AA on face qhs 45 g 11 4 Active Additional Information Patient not taking.Reported on 08/29/2024 naltrexone (LOW DOSE) 1 mg capsule Take 1 capsule (1 mg total) by mouth daily 0.05mg per day 4 Active ubidecarenone (COQ-10 ORAL) Take 250 mg by mouth daily Active vitamin B complex capsule Take 1 capsule by mouth daily Active MAGNESIUM CITRATE ORAL Take 600 mg by mouth daily Active methocarbamoL (ROBAXIN) 500 mg tablet Take 1 tablet (500 mg total) by mouth 3 (three) times a day as needed for muscle spasms 30 tablet 4 Active ALPRAZolam (XANAX) 0.5 mg tablet TAKE 1 TABLET BY MOUTH TWICE DAILY NEEDED FOR ANXIETY OR PANIC ATTACKS Active Zepbound 5 mg/0.5 mL pen injector INJECT 5MG UNDER THE SKIN EVERY WEEK 4 Active midodrine (PROAMATINE) 2.5 mg tabletIndication s:Symptomatic Orthostatic Hypotension Take 1 tablet (2.5 mg total) by mouth 2 (two) times a day 4 08/29/20 25 Active norgestimate-eth inyl estradioL (Estarylla) 0.25-35 mg-mcg per tablet Take 1 tablet by mouth daily 84 tablet 1 5 Active Active Problems Problem Noted Date Diagnosed Date Cold sensitivity 04/04/2024 Low serum cortisol level 09/25/2023 Syncope and collapse 08/31/2023 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 Pathak Migraine without aura, not i ntractable, without status migrainosus 08/30/2014 Overview (01/02/2017): Migraine headache Assessment & Plan (03/06/2022 12:42 PM CDT): Follows with Neuro Assessment & Plan (10/30/2020 8:40 AM INSPECTOR): Ms. Petty presents today for follow-up regarding her migraine headaches. Her headaches have been stable on her current regimen of Effexor XR 75 mg daily. Since making this increase, she reports better control of her headache pattern. She has been experiencing 1 migraine cycle, lasting 3-4 days in duration per month. She continues to take Maxalt 10 mg, 1/4-1/2 tab at the onset of a migraine with little benefit of her acute headache. She notes that if she takes a full dose of her Maxalt, she suffers from side effects of the medication and is unable tolerate it. Past preventative treatments consist of nortriptyline, Topamax, Lyrica, Botox for migraine protocol and Tegretol. Currently on Effexor. Past acute treatments consist of Imitrex and rizatriptan. The patient has had a reaction to to Triptan medications, we did discuss the new CGRP medication for acute treatment of headaches. She is familiar with these medications as her mother currently takes Nurtec with adequate relief of her acute headaches. I do believe the patient is a strong candidate for one of these medications as she has failed two triptan medications. Plan: 1. Continue Effexor XR 75 mg daily for headache prevention and management of anxiety and depression. 2. Nurtec 75mg at the onset of an acute headache. Patient should notify the office and let us know how this medication works on her headache pattern. If she tolerates this medication, I will send refills to her [facility]. 3. Headache diary 4. Continue to follow a well-balanced diet and exercise regularly. 5. Follow-up in 1 year. If she is to see an increase in her headache pattern, she should contact the office to be seen sooner. At today s visit migraine education was performed. We discussed avoidance of migraine triggers and non-medicinal strategies for preventing migraines. Topics of discussion included improved sleep hygiene, healthy diet, and stress reduction techniques. We also discussed the importance of avoiding medication overuse, as this can promote analgesic rebound headache. Gastroparesis 08/30/2014 Overview (01/02/2017): Gastroparesis Hypermobility syndrome 08/30/2014 Overview (01/02/2017): Hypermobility syndrome Gluten sensitivity 08/30/2014 Overview (01/02/2017): Gluten sensitivity Trigeminal neuralgia 08/30/2014 Overview (01/02/2017): Trigeminal neuralgia Assessment & Plan (10/30/2020 8:40 AM INSPECTOR): Currently stable for Ms. Petty. 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 Assessment & Plan (02/12/2023 12:10 PM CDT): Stable Assessment & Plan (03/06/2022 12:43 PM CDT): Stable Thyroid nodule 06/12/2014 Postural orthostatic tachycardia syndrome 2013 Assessment & Plan (02/12/2023 12:12 PM CDT): Stable Paperwork completed Assessment & Plan (03/06/2022 12:43 PM CDT): Follows with Cardiology On midodrine PRN currently Tachycardia, unspecified 11/15/2013 Polycystic ovaries 11/15/2013 Irregular menstrual cycle 07/03/2013 Sinus tachycardia 05/26/2013 Seborrheic eczema 05/26/2013 Attention deficit disorder 05/03/2013 Overview (01/01/2017): ADHD (attention deficit hyperactivity disorder) IBS (irritable bowel syndrome) 11/19/2011 Hereditary essential tremor 12/23/2010 Assessment & Plan (10/30/2020 8:41 AM INSPECTOR): Remains stable at this time for Ms. Petty. Hay fever 12/23/2010 Migraine headache 12/23/2010 Assessment & Plan (02/12/2023 12:10 PM CDT): Stable Resolved Problems Problem Noted Date Diagnosed Date Resolved Date Salivary gland swelling 08/19/202101/25 Assessment & Plan (08/19/2021 12:39 PM INSPECTOR): Do not detect any lymphadenopathy. Has mild swelling of the right submandibular gland. The oropharynx year is and other examination of the neck lungs and chest all reveal no abnormalities. Have recommended conservative treatment as she has had multiple antibiotics recently and there is no evidence for purulence sialadenitis. No pus noted in the oropharynx. Also recommend diet limit drops in case there is a salivary stone which she may have had in the past. If symptoms persist would recommend ENT and she will call. Dental abscess 07/14/2021 02/12/2023 Assessment & Plan (07/14/2021 4:27 PM CDT): Continue augmentin BID x 10d. Warm salt water gargles CBC/CMP today Heat PRN Left upper quadrant abdomina l pain of unknown etiology 05/06/2021 07/14/2021 Right upper quadrant abdominal pain 05/06/2021 02/12/2023 Abnormal LFTs 05/06/2021 07/14/2021 Neck pain 11/07/2019 07/14/2021 Calculus of gallbladder with acute on chronic cholecystitis with obstruction 07/18/2019 2 Overview (07/18/2019): Added automatically from request for surgery [id number] Restless leg syndrome 02/23/20182021 Snoring 02/23/2018 03/06/2022 Skin wrinkling 03/07/2016 02/12/2023 Weight gain 01/29/2015 07/14/2021 Hypercalcemia 06/12/2014 07/14/2021 Positive serological test result 06/12/2014 02/12/2023 Calculus of kidney 01/30/2014 Baldness 11/15/2013 07/14/2021 Acne 05/17/2013 07/14/2021 Diarrhea 11/19/2011 07/14/2021 Nausea with vomiting 11/19/2011 021 Immunizations Immunization Administration Dates Next Due Influenza, Quadrivalent, Split, Intramuscular Influenza, Quadrivalent, Spl it, Preservative Free, Intramuscular 06/09/2019 Influenza, Trivalent, IM (MDV) 07/31/2014,2011 Influenza, Trivalent, Preservative Free, Intramu scular 05/28/2011,06/27/2010 Influenza, Trivalent, Split, Preservative Free, Intradermal 06/27/2014 Influenza, Unspecified 06/01/2019 Social History Tobacco Use Types Packs/Day Years Used Date Smoking Tobacco: Never Passive Smoke Exposure: Past Smokeless Tobacco: Never Alcohol Use Standard Drinks/Week Comments No 0 (1 standard drink = 0.6 oz pur e alcohol) AUDIT-C Answer Date Recorded Q1: How often do you have a drink containing alc ohol? Never 03/20/2024 Average Number of Drinks Not on file 024 Q3: How often do you have si x or more drinks on one occasion? Never 03/20/2024 Exercise Vital Sign Answer Date Recorde d Days of Exercise per Week 3 days 2018 Minutes of Exercise per Session 30 min 05/09/2019 Comments No Sex and Gender Information Value Date Recorded Sex Assigned at Not on file Legal Sex Female 11:21 AM INSPECTOR Gender Identity Female 12/01/2024 3:16 PM INSPECTOR Sexual Orientation Straight 12/01/2024 3: 16 PM INSPECTOR Last Filed Vital Signs Vital Sign Reading Time Taken Comments Blood Pressure 112/83 08/29/2024 10:33 AM INSPECTOR Pulse 100 08/29/2024 10:33 AM INSPECTOR Temperature 36.3 C (97.4 F) 08/29/2024 10:33 AM INSPECTOR Respiratory Rate 14 06/25/2021 9:33 AM CDT Oxygen Saturation 100% 08/29/2024 10:33 AM INSPECTOR Inhaled Oxygen Concentration - - Weight 61.8 kg (136 lb 3.2 oz) 08/29/2024 10:33 AM INSPECTOR Height 167.6 cm (5' 6 ) 08/29/2024 10:33 AM INSPECTOR Body Mass Index 21.98 08/29/2024 10:33 AM INSPECTOR Plan of Treatment Not on file Goals Goal Patient Goal Type Associated Problems Recent Progress Patient-Stated? Author CCM Chronic Pain Care Plan Chronic Care Management No change(06/25 9:34 AM CDT) No Estuardo, Sandra Correia, RN Note: Problem: Chronic Pain Goals: 1. Minimize further functional decline 2. Maximize quality of life 3. Control pain Strategies: - Activity/exercise program recommendation - Conservative stepwise pain medicine strategy with multi-disciplinary approach - Recommend healthy lifestyle strategies and compensatory methods as needed Medical Devices Explanted Type Area Metallography Teacher Device Identifier Shelf Expiration Date Model / Serial / Lot [employer] 6341 Schaeffer Flexi-Stent 4fr 2cm Small Pigtail Straight Flexible .025 - [id number] Explanted:Qty: 1 on 07/24/2019 by Justin White MD at [facility] Stent N/A: Pancreas [employer] 02/25/2024 [id number] / / [id number] Conmed Crsitian [id number] Viabil 8mm 8.5fr 60mm 200cm Expandable Pull Line Without Holes - [id number] - [id number] Implanted:Qty: 1 on 07/24/2019 by Justin White MD at [facility] Explanted:Qty: 1 on 07/26/2019 by Justin White MD at [facility] Stent N/A: Bile Duct Conmed Cristian 12/06/2021 [id number] / [id number] / Procedures Procedure Name Priority Date/Time Associated Diagnosis Comments PAP AND HIGH RISK HPV, REFLEX TO GENOTYPING Routine 08/18/2023 11:50 AM INSPECTOR HEPATITIS C ANTIBODY Routine 05/09/2019 12:29 PM CDT Screening for STDs (sexually transmitted diseases) from Last 3 Months or Most Recently Relevant to Health Maintenance Results * Pap and High Risk HPV and Genotyping (Cytology Component) (08/18/2023 11:50 AM INSPECTOR) Pap test 08/18/2023 11:5 0 AM INSPECTOR 08/18/2023 5:32 PM INSPECTOR Narrative 08/24/2023 4:02 PM INSPECTOR EPIC results best viewed via link to PDF [facility] [place] [address] Note to Patients: This report may contain a detailed description of human tissue sent by a health care provider to the laboratory for pathologic evaluation. The content of this report is essential for diagnosis and may provide important critical findings. This information may be unfamiliar to patients to review without a medical professional present. It is advised that the patient review this report in the presence of a health care provider who can answer questions and explain the details. CYTOPATHOLOGY REPORT FINAL Patient Name: BETHANY PETTY Gender: F : 1995 (Age: 28) Address: [address] [place], [place] [address] Hospital #: [id number] Service: DEFAULT Location: Patient Type: [facility] SPECIMEN Taken: 08/18/2023 Received: 08/18/2023 Accessioned: 08/20/2023 Reported: 08/24/2023 Physician(s): Lavern Singh M.D. FINAL INTERPRETATION SOURCE OF SPECIMEN Liquid based Thin Prep pap with HPV: STATEMENT OF ADEQUACY - Satisfactory for evaluation - Endocervical cells/transformation zone sample present GENERAL CATEGORIZATION: - Negative for squamous intraepithelial lesion or malignancy jhosie/08/24/2023 16:02 ELIZABETH Miramontes(ASCP) Report Electronically Reviewed and Signed Out By ELIZABETH Miramontes(ASCP) 08/24/2023 16:02:28 Cervicovaginal Cytology (Pap Test) Disclaimer: The Pap test is a screening test used to detect cervical cancer and its precursors; it is not a diagnostic procedure. False negative and false positive results do occur. Pap test results should be interpreted in the context of pertinent clinical information and biopsy results as indicated. [facility] Clinical Laboratory Improvement Amendments (CLIA) mandate that cytologic and histologic results be correlated for laboratory quality facilitator & improvement standards. FOR ALL HIGH-GRADE CASES we request submission of follow-up histological material and/or reports that have not been previously provided so that we may fulfill said required standards. Gross Description A. Liquid based Thin Prep pap with HPV: Cervical/vaginal - Screening ThinPrep with GC/Chlamydia Clinical Diagnosis and History Last Menstrual Period: 07/29/23 The patient is a 28 year old woman with screening. Report Images and scanned documents, if included only viewable in PDF version The performance characteristics of some immunohistochemical stains, in-situ hybridization and fluorescence in-situ hybridization tests and immunophenotyping by flow cytometry cited in this report (if any) were determined by the Surgical Pathology Department at [facility] as part of an ongoing ict quality assurance engineer program and in compliance with federally mandated regulations drawn from the Clinical Laboratory Improvement Act of 1988 (CLIA '88). Some of these tests rely on the use of analyte specific reagents and are subject to specific labeling requirements by the US Food and Drug Administration. Such diagnostic tests may only be performed in a facility that is certified by the Department of Health and Human Services as a high complexity laboratory under CLIA '88. The FDA has determined that such clearance or approval is not necessary. This test is used for clinical purposes. It should not be regarded as investigational or for research. Nevertheless, federal rules concerning the medical use of analyte specific reagents require that the following disclaimer be attached to the report: This test was developed and its performance characteristics determined by the Surgical Pathology Department of [facility]. It has not been cleared or approved by the U. S. Food and Drug Administration. Lavern Singh MD LAB CYTOLOGY ORDERABLES F inal Result * Hepatitis C antibody (05/09/2019 12:29 PM CDT) Hep C Ab Nonreactive Nonreactive MELONIE DEL RIO Comment: Interpretive Data Positive results should be confirmed by a molecular method. If positive, a second separately collected sample should be submitted for Hepatitis C Virus (HCV) RNA Detection and Quantitation by Real-Time Reverse Muffle Operator-PCR (RT-PCR). Current interpretive data was last revised on 2016. Blood specimen (specimen) 05/09/2019 12:29 PM CDT 05/09/2019 1:31 PM CDT us Katt Landin NP LAB MICROBIOLOGY - GENE RAL ORDERABLES Edited Result - Final MELONIE DEL RIO [facility] Department [place] [address] from Last 3 Months or Most Recently Relevant to Health Maintenance Insurance [facility] OPTIONS PPO [facility] HMO/PPO Address[facility] [id number] [place] [address] [facility] CHOICE PLUS [facility] HMO/PPO Address: [address] [address] [place] [address] [facility] CHOICE PLUS [facility] HMO/PPO Address: [address] [place], [place] [id number] [facility] OPT[employer] PPO [facility] HMO/PPO Address: [address] [address] [place] [address] [facility] OPT[employer] PPO [facility] HMO/PPO Address: [facility] [id number] [place] [id number] Advance Directives For more information, please contact: [phone] * Full Code (Latest Code Status on File) Date Activated Date Inactivated Comments 07/20/2019 5:38 PM 07/27/2019 4:18 PM Care Teams Vp Information Technology Relationship Specialty Start Date End Date Mervin Garcia MD [address] [address] PCP - General Internal Medicine 12/16/20 Stephane Cade MD 01/27/19
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
--- OUTSIDE RECORDS SUMMARY | 2025-01-10 07:42 | XMS_ITS | Clinical Summary ---
Author Organization [facility] Address [address] [place] [address] Care Team Providers Care Automobile Radiator Mechanic Name Role Phone Unavailable Primary Care Provider Unavailabl e Social History Tobacco Use Types Packs/Day Years Used Date Smoking Tobacco: Never Assessed Comments Unknown Sex and Gender Information Value Date Recorded Sex Assigned at Not on file Legal Sex Female 4:41 PM CDT Gender Identity Not on file Sexual Orientation Not on file Plan of Treatment Health Maintenance Due Date Last Done Comments Cervical Cancer Screening Pa p Smear (Age 30 to 64) Every 3 Years 1994 Annual Physical 1997 Hepatitis C 2012 DTaP, Tdap and Td Vaccines ( 1 - Tdap) 2013 Hepatitis B Vaccines (1 of 3 - 19+ 3-dose series) 2013 Cervical Cancer Screening Pa p with HPV Testing (Age 30 to 64) Every 5 Years 2024 Cervical Cancer Screening with HPV 2024 COVID-19 Vaccine (2023-2 5 season) 2024 HPV Vaccines Aged Out No longer eligi ble based on patient's age to complete this topic Meningococcal B Vaccine Aged Out No l onger eligible based on patient's age to complete this topic Meningococcal Vaccine Aged Out No sage dariusz eligible based on patient's age to complete this topic Pneumococcal Vaccine: Pediat rics (0 to 5 Years) and At-Risk Patients (6 to 49 Years) Aged Out No longer eligible b ased on patient's age to complete this topic RSV Immunizations Under 20 Months Aged Out No longer eligible based on patient's age to complete this topic
[2025-01-10 07:45] VITALS: BP 113/93; PULSE 125; RESP 16; O2SAT 100
[2025-01-10 07:48] VITALS: BP 113/93; BP 120/104; PULSE 120; PULSE 125
[2025-01-10 07:52] VITALS: BP 115/90; PULSE 134
[2025-01-10] MEDS: ONDANSETRON INJ 4 MG/2 ML VIAL IV PUSH (07:57)
[2025-01-10 07:58] LABS: Basophils Percent Auto 0.3 % (0.2-1.2); Eosinophils Percent Auto 0.1 % (0-4.4); Hematocrit 48.4 % (37.0-47.0); Hemoglobin 15.9 g/dL (12.0-15.0); Immature Granulocyte Absolute 0.04 K/mm3 (0.00-0.031); Immature Granulocyte Percent A 0.4 % (0-0.5); Lymphocytes Percent Auto 5.4 % (18.3-44.2); Mean Corpuscular HGB Conc 32.9 g/dl (32-36); Mean Corpuscular Hemoglobin 29.9 pg (26-34); Mean Corpuscular Volume 91.1 fl (80-100); Mean Platelet Volume 8.8 fl (7.4-10.4); Monocytes Absolute Auto 0.3 K/mm3 (0.1-0.6); Monocytes Percent Auto 2.5 % (2.6-8.5); Neutrophils Absolute Auto 10.1 K/mm3 (1.3-6.7); Neutrophils Percent Auto 91.3 % (45.5-73.1); Platelet Count Result 317 k/mm3 (150-375); Red Blood Count 5.31 M/mm3 (4.2-5.4); Red Cell Distribution Width 12.1 % (11.5-14.5); White Blood Count 11.1 K/mm3 (4.5-10.0)
[2025-01-10] MEDS: SODIUM CHLORIDE 0.9% IV 1,000 ML 999 ML IV CONT (07:59)
[2025-01-10 08:08] LABS: BEDSIDEPREGUCG Negative (Negative)
[2025-01-10 08:20] LABS: Albumin Level 4.8 g/dL (3.5-5.1); Alkaline Phosphatase 48 U/L (38-126); Anion Gap 17 mmol/L (4-12); Aspartate Amino Transferase 25 U/L (14-36); Bilirubin,Total 0.8 mg/dL (0.2-1.3); Blood Urea Nitrogen 18 mg/dL (7-17); Calcium 9.3 mg/dL (8.4-10.2); Carbon Dioxide 17 mmol/L (22-30); Chloride 105 mmol/L (98-107); Estimated CRCL calculation 76 ml/min; Estimated Glomerular Filt Rate > 60; Glucose 137 mg/dL (65-110); Lipase 40 U/L (23-300); Potassium 4.1 mmol/L (3.4-5.0); Sodium 139 mmol/L (137-145)
[2025-01-10 08:26] LABS: Add Urine Microscopic? YES; Appearance Urine Cloudy (Clear); Bacteria Urine None Seen /hpf; Bilirubin Urine 1+ (Negative); Blood Urine Trace (Negative); Color Urine Dark Yellow (Yellow); Glucose Urine UA Negative (Negative); Ketones Urine 1+ mg/dL (Negative); Leukocyte Esterase Ur Negative LEU/UL (Negative); Mucus Urine Present /lpf; Need Manual Microscopic Reviewed; Nitrate Urine Negative (Negative); Non Pathogenic Casts >20; Protein Urine 1+ mg/dL (Negative); RBC Urine 0-2 /hpf (0-2); Specific Grav Ur 1.027 (1.001-1.035); Squamous Epithelial Cell Urine Few /hpf (Few); pH Urine 5.5 (5.0-9.0)
[2025-01-10 08:27] LABS: Alanine Aminotransferase 27 U/L (6-35)
--- OUTSIDE RECORDS SUMMARY | 2025-01-10 08:32 | XMS_ITS | Encounter Summary ---
Author Organization [facility] Address [address] [place] [address] Care Team Providers Care Lay Brother Name Role Phone Stephane Cade MD Primary Care Provider [phone] Encounter Details Date Type Department Care Team (Late st Contact Info) Description 11/17/2006 Outpatient Historical [facility] Jam Grijalva, MADAI [address] [address] [place], Authorized P NO ADDRESS ON FILE Depressive Disorder, not Elsewhere Classified (Primary Dx) Social History Tobacco Use Types Packs/Day Years Used Date Smoking Tobacco: Never Assessed Comments Unknown Sex and Gender Information Value Date Recorded Sex Assigned at Not on file Legal Sex Female 5:32 AM BRIDGE MAINTAINER Gender Identity Not on file Sexual Orientation Not on file documented as of this encounter Plan of Treatment Not on file documented as of this encounter Visit Diagnoses Diagnosis Depressive disorder, not elsewhere classified- Primary documented in this encounter Care Teams Lay Brother Relationship Specialty Start Date End Date Stephane Cade MD [address] [place] [address] PCP - General Internal Medicine 11/19/11 documented as of this encounter
--- OUTSIDE RECORDS SUMMARY | 2025-01-10 08:32 | XMS_ITS | Clinical Summary ---
Author Organization [facility] Address [address] [facility] [place] [address] Phone Care Team Providers Care Circuit Recorder Name Role Phone Stephane Cade MD Primary Care Provider [phone] Allergies No known active allergies Medications omeprazole [...] on file Legal Sex Female 5:32 AM PARTS SPECIALIST Gender Identity Not on file Sexual Orientation [...] Advance Directives For more information, please contact: [phone] * Full Code (Latest Code Status on File) Date Activated Date Inactivated Comments 12/10/2011 7:13 AM 12/11/2011 2:01 AM Care Teams Circuit Recorder Relationship Specialty Start Date End Date Stephane Cade MD [address] [place] [address] PCP - General Internal Medicine 11/19/11
--- OUTSIDE RECORDS SUMMARY | 2025-01-10 08:32 | XMS_ITS | Clinical Summary ---
Author Organization [facility] Address [address] [place] [address] Care Team Providers Care Account Relationship Manager Name Role Phone Unavailable Primary Care Provider [...]
--- OUTSIDE RECORDS SUMMARY | 2025-01-10 08:32 | XMS_ITS | Referral Summary ---
Author Organization [facility] Address [address] [place] [address] Care Team Providers Care Bearing Machine Operator Name Role Phone Stephane Cade MD Unavailable [phone] Mevrin Garcia MD Primary Care Provider [phone] Allergies Active Allergy Reactions Criticality Noted Date [...] Neuro Assessment & Plan (10/30/2020 8:40 AM SKATE MAKER): Ms. Petty presents today for follow-up regarding [...] neuralgia Assessment & Plan (10/30/2020 8:40 AM SKATE MAKER): Currently stable for Ms. Petty. Shelly-Danlos syndrome [...] 12/23/2010 Assessment & Plan (10/30/2020 8:41 AM SKATE MAKER): Remains stable at this time for Ms. Petty. Hay fever 12/23/2010 Migraine headache 12/23/2010 Assessment & Plan (02/12/2023 12:10 PM CDT): Stable Resolved Problems Problem Noted Date Diagnosed Date Resolved Date Salivary gland swelling 08/19/202101/25 Assessment & Plan (08/19/2021 12:39 PM SKATE MAKER): Do not detect any lymphadenopathy. Has mild [...] (07/18/2019): Added automatically from request for surgery [id number] Restless leg syndrome 02/23/20182021 Snoring 02/23/2018 03/06/2022 [...] on file Legal Sex Female 11:21 AM SKATE MAKER Gender Identity Female 12/01/2024 3:16 PM SKATE MAKER Sexual Orientation Straight 12/01/2024 3: 16 PM SKATE MAKER Last Filed Vital Signs Vital Sign Reading Time Taken Comments Blood Pressure 112/83 08/29/2024 10:33 AM SKATE MAKER Pulse 100 08/29/2024 10:33 AM SKATE MAKER Temperature 36.3 C (97.4 F) 08/29/2024 10:33 AM SKATE MAKER Respiratory Rate 14 06/25/2021 9:33 AM CDT Oxygen Saturation 100% 08/29/2024 10:33 AM SKATE MAKER Inhaled Oxygen Concentration - - Weight 61.8 kg (136 lb 3.2 oz) 08/29/2024 10:33 AM SKATE MAKER Height 167.6 cm (5' 6 ) 08/29/2024 10:33 AM SKATE MAKER Body Mass Index 21.98 08/29/2024 10:33 AM SKATE MAKER Plan of Treatment Not on file Goals [...] as needed Medical Devices Explanted Type Area Assembler Lay Ups Device Identifier Shelf Expiration Date Model / Serial / Lot [employer] 6341 Schaeffer Flexi-Stent 4fr 2cm Small Pigtail Straight Flexible .025 - [id number] Explanted:Qty: 1 on 07/24/2019 by Justin White MD at [facility] Stent N/A: Pancreas [employer] 02/25/2024 [id number] / / [id number] Conmed Cristian [id number] Viabil 8mm 8.5fr 60mm 200cm Expandable Pull Line Without Holes - [id number] - [id number] Implanted:Qty: 1 on 07/24/2019 by Justin White MD at [facility] Explanted:Qty: 1 on 07/26/2019 by Justin White MD at [facility] Stent N/A: Bile Duct Conmed Cristian 12/06/2021 [id number] / [id number] / Procedures Procedure Name Priority Date/Time Associated Diagnosis Comments PAP AND HIGH RISK HPV, REFLEX TO GENOTYPING Routine 08/18/2023 11:50 AM SKATE MAKER HEPATITIS C ANTIBODY Routine 05/09/2019 12:29 PM CDT Screening for STDs (sexually transmitted diseases) from Last 3 Months or Most Recently Relevant to Health Maintenance Results * Pap and High Risk HPV and Genotyping (Cytology Component) (08/18/2023 11:50 AM SKATE MAKER) Pap test 08/18/2023 11:5 0 AM SKATE MAKER 08/18/2023 5:32 PM SKATE MAKER Narrative 08/24/2023 4:02 PM SKATE MAKER EPIC results best viewed via link to PDF [facility] Rup[facility] Martin Laboratory [place] [address] Note to Patients: This report may contain [...] Gender: F : 1995 (Age: 28) Address: [address] [place], [place] [address] Hospital #: [id number] Service: DEFAULT Location: Patient Type: [facility] SPECIMEN Taken: 08/18/2023 Received: 08/18/2023 Accessioned: [...] clinical information and biopsy results as indicated. [facility] Clinical Laboratory Improvement Amendments (CLIA) mandate that cytologic and histologic results be correlated for laboratory associate quality engineer & improvement standards. FOR ALL HIGH-GRADE CASES [...] determined by the Surgical Pathology Department at [facility] as part of an ongoing quality systems technician program and in compliance with federally mandated [...] determined by the Surgical Pathology Department of [facility]. It has not been cleared or approved [...] RNA Detection and Quantitation by Real-Time Reverse Rotary Filter Operator-PCR (RT-PCR). Current interpretive data was last revised on 2016. Blood specimen (specimen) 05/09/2019 12:29 PM CDT 05/09/2019 1:31 PM CDT us Katt Landin NP LAB MICROBIOLOGY - GENE RAL ORDERABLES Edited Result - Final [facility] Department [place] [address] from Last 3 Months or Most Recently Relevant to Health Maintenance Insurance [facility] [employer] PPO [facility] [employer] [facility] [employer] PPO [facility] [employer] P[employer] Advance Directives For more information, please contact: [phone] * Full Code (Latest Code Status on File) Date Activated Date Inactivated Comments 07/20/2019 5:38 PM 07/27/2019 4:18 PM Care Teams Bearing Machine Operator Relationship Specialty Start Date End Date Mervin Garcia MD [address] [address] PCP - General Internal Medicine 12/16/20 Stephane Cade MD 01/27/19
--- OUTSIDE RECORDS SUMMARY | 2025-01-10 08:32 | XMS_ITS | Clinical Summary ---
Author Organization [facility] Address [address] [place] [address] Care Team Providers Care Building Specialist Name Role Phone Mervin Garcia MD Primary Care Provider [phone] Source Comments [facility],non-owned Affiliates and Associated Physician Practices is amultiple site organization consisting of ambulatory clinics and hospital sitesin [place], [place], [place]. This disclosure is being madepursuant to the Care Everywhere program and may not contain all information available regarding this patient. Last updated 18.[facility] Allergies Active Allergy Reactions Criticality Noted Date [...] Type Department Care Team Description 12/19/2024 Telephone [facility] [address] [address] Mirta Mccarthy MD Referral from [...] CDT Oxygen Saturation 99% 08/17/2014 12:13 PM PRODUCTION POSTING CLERK Inhaled Oxygen Concentration - - Weight 61.2 kg (135 lb) 06/06/2024 11:09 AM CDT Height 167.6 cm (5' 6 ) 06/06/2024 11:09 AM CDT Body Mass Index 21.79 06/06/2024 11:09 AM CDT Plan of Treatment Upcoming Encounters Date Type Department Care Team (Late st Contact Info) Description 06/06/2025 11:00 AM CDT Office Visit [facility] [address] [facility] [address] [place] [address] Rupinder Marin, INTERNATIONAL REPRESENTATIVE-ICE CUTTER [address] [facility] [address] [place] [id number] Health Maintenance Due Date Last Done Comments [...] 1:17 AM 08/17/2014 2:25 PM Care Teams Building Specialist Relationship Specialty Start Date End Date Mervin Garcia MD [address] [address] PCP - General 09/04/22
--- OUTSIDE RECORDS SUMMARY | 2025-01-10 08:32 | XMS_ITS | Clinical Summary ---
Author Organization [facility] Address [address] [place] [address] Care Team Providers Care Nutrition Services Aide Name Role Phone Stephane Cade MD Unavailable [phone] Mervin Garcia MD Primary Care Provider [phone] Allergies Active Allergy Reactions Criticality Noted Date [...] Neuro Assessment & Plan (10/30/2020 8:40 AM PAYROLL BENEFITS ADMINISTRATOR): Ms. Petty presents today for follow-up regarding [...] neuralgia Assessment & Plan (10/30/2020 8:40 AM PAYROLL BENEFITS ADMINISTRATOR): Currently stable for Ms. Petty. Shelly-Danlos syndrome [...] 12/23/2010 Assessment & Plan (10/30/2020 8:41 AM PAYROLL BENEFITS ADMINISTRATOR): Remains stable at this time for Ms. Petty. Hay fever 12/23/2010 Migraine headache 12/23/2010 Assessment & Plan (02/12/2023 12:10 PM CDT): Stable Resolved Problems Problem Noted Date Diagnosed Date Resolved Date Salivary gland swelling 08/19/202101/25 Assessment & Plan (08/19/2021 12:39 PM PAYROLL BENEFITS ADMINISTRATOR): Do not detect any lymphadenopathy. Has mild [...] (07/18/2019): Added automatically from request for surgery [id number] Restless leg syndrome 02/23/20182021 Snoring 02/23/2018 03/06/2022 [...] Mother Adali Petty cancer; Migdalia's thyroiditis Mother Adali Petty Fami ly history of Migdalia thyroiditis [...] on file Legal Sex Female 11:21 AM PAYROLL BENEFITS ADMINISTRATOR Gender Identity Female 12/01/2024 3:16 PM PAYROLL BENEFITS ADMINISTRATOR Sexual Orientation Straight 12/01/2024 3: 16 PM PAYROLL BENEFITS ADMINISTRATOR Obstetrics History Para Term AB IAB SAB Ectopic Multiple Livin g Live Births 0 0 0 0 0 0 0 0 0 0 0 Last Filed Vital Signs Vital Sign Reading Time Taken Comments Blood Pressure 112/83 08/29/2024 10:33 AM PAYROLL BENEFITS ADMINISTRATOR Pulse 100 08/29/2024 10:33 AM PAYROLL BENEFITS ADMINISTRATOR Temperature 36.3 C (97.4 F) 08/29/2024 10:33 AM PAYROLL BENEFITS ADMINISTRATOR Respiratory Rate 14 06/25/2021 9:33 AM CDT Oxygen Saturation 100% 08/29/2024 10:33 AM PAYROLL BENEFITS ADMINISTRATOR Inhaled Oxygen Concentration - - Weight 61.8 kg (136 lb 3.2 oz) 08/29/2024 10:33 AM PAYROLL BENEFITS ADMINISTRATOR Height 167.6 cm (5' 6 ) 08/29/2024 10:33 AM PAYROLL BENEFITS ADMINISTRATOR Body Mass Index 21.98 08/29/2024 10:33 AM PAYROLL BENEFITS ADMINISTRATOR Plan of Treatment Health Maintenance Due Date [...] as needed Medical Devices Explanted Type Area Repair Tech Device Identifier Shelf Expiration Date Model / Serial / Lot Custom [employer] 6341 Schaeffer Flexi-Stent 4fr 2cm Small Pigtail Straight Flexible .025 - [id number] Explanted:Qty: 1 on 07/24/2019 by Justin White MD at [facility] Stent N/A: Pancreas [employer] 02/25/2024 [id number] / / [id number] Conmed Cristian [id number] Viabil 8mm 8.5fr 60mm 200cm Expandable Pull Line Without Holes - [id number] - [id number] Implanted:Qty: 1 on 07/24/2019 by Justin White MD at [facility] Explanted:Qty: 1 on 07/26/2019 by Justin White MD at [facility] Stent N/A: Bile Duct Conmed Cristian 12/06/2021 [id number] / [id number] / Procedures Procedure Name Priority Date/Time Associated Diagnosis Comments PAP AND HIGH RISK HPV, REFLEX TO GENOTYPING Routine 08/18/2023 11:50 AM PAYROLL BENEFITS ADMINISTRATOR HEPATITIS C ANTIBODY Routine 05/09/2019 12:29 PM CDT Screening for STDs (sexually transmitted diseases) from Last 3 Months or Most Recently Relevant to Health Maintenance Results * Pap and High Risk HPV and Genotyping (Cytology Component) (08/18/2023 11:50 AM PAYROLL BENEFITS ADMINISTRATOR) Pap test 08/18/2023 11:5 0 AM PAYROLL BENEFITS ADMINISTRATOR 08/18/2023 5:32 PM PAYROLL BENEFITS ADMINISTRATOR Narrative 08/24/2023 4:02 PM PAYROLL BENEFITS ADMINISTRATOR EPIC results best viewed via link to PDF [facility] [place] [address] Note to Patients: This report may contain [...] Gender: F : 1995 (Age: 28) Address: [address] [place] [address] Hospital #: [id number] Service: DEFAULT Location: Patient Type: [facility] SPECIMEN Taken: 08/18/2023 Received: 08/18/2023 Accessioned: 08/20/2023 [...] clinical information and biopsy results as indicated. [facility] Clinical Laboratory Improvement Amendments (CLIA) mandate that cytologic and histologic results be correlated for laboratory senior quality methods specialist & improvement standards. FOR ALL HIGH-GRADE CASES [...] determined by the Surgical Pathology Department at [facility] as part of an ongoing manufacturing quality inspector program and in compliance with federally mandated [...] determined by the Surgical Pathology Department of [facility]. It has not been cleared or [...] RNA Detection and Quantitation by Real-Time Reverse Procurement Cost Coordinator-PCR (RT-PCR). Current interpretive data was last revised on 2016. Blood specimen (specimen) 05/09/2019 12:29 PM CDT 05/09/2019 1:31 PM CDT us Katt Landin NP LAB MICROBIOLOGY - GENE RAL ORDERABLES Edited Result - Final [facility] Department [place] [address] from Last 3 Months or Most Recently Relevant to Health Maintenance Insurance [facility] OPTIONS P[facility] H[facility]/PPO Address: [facility] [address] [place] [address] [facility] CHOICE [facility]US [facility] H[facility]/PPO Address: [address] [address] [place] [address] [facility] CHOICE [facility] H[facility]/PPO Address: [address] [address] [place] [address] [facility] OPTIONS PPO [facility]/PPO Address: [address] [address] [place] [address] [facility] [employer] PPO [facility]/PPO Address: [id number] [place] [address] Advance Directives For more information, please contact: [phone] * Full Code (Latest Code Status on File) Date Activated Date Inactivated Comments 07/20/2019 5:38 PM 07/27/2019 4:18 PM Care Teams Nutrition Services Aide Relationship Specialty Start Date End Date Mervin Garcia MD [address] [address] PCP - General Internal Medicine 12/16/20 Stephane Cade MD 01/27/19
--- NOTE | 2025-01-10 10:05 | ED_ITS ---
HPI - General Adult General Chief complaint: Nausea/Vomiting/Diarrhea Stated complaint: vomiting, hx of POTS Time Seen by Provider: 01/10/25 07:43 History of Present Illness HPI narrative: Patient is a 29-year-old female who presents emergency department with chief complaint of nausea vomiting diarrhea since 9:00 p.m. last night patient reports she has prior history of POTS syndrome and reports that she did have a syncopal episode on Wednesday patient states she feels very dehydrated and reports that she does does not feel well. Related Data Home Medications ?Medication ?Instructions ?Recorded ?Confirmed ?Last Taken ?Type Adult Multi plus Humble-3 1 tab-cap PO BID 08/17/22 08/17/22 08/17/22 History Adults Multivitamin 1 tab-cap PO DAILY 08/17/22 08/17/22 08/17/22 History brompheniramine-phenylpropanolamine 1 tablet PO DAILY 08/17/22 08/17/22 08/17/22 History 4 mg-25 mg tablet calcium-vitamin D3 1 tablet PO DAILY 08/17/22 08/17/22 08/17/22 History cetirizine 10 mg capsule (Zyrtec) 10 mg PO HS 08/17/22 08/17/22 08/16/22 History cyclobenzaprine 10 mg tablet 10 mg PO TID PRN spasm 08/17/22 08/17/22 Unknown History dicyclomine 20 mg tablet 20 mg PO Q6H PRN Spasms 08/17/22 08/17/22 Unknown History drospirenone 3 mg-ethinyl 1 tablet PO DAILY 08/17/22 08/17/22 08/17/22 History estradiol 0.03 mg tablet (Malrey) famotidine 20 mg tablet 20 mg PO BID 08/17/22 08/17/22 08/17/22 History fexofenadine 30 mg tablet 30 mg PO DAILY 08/17/22 08/17/22 08/17/22 History montelukast 10 mg tablet 10 mg PO HS 08/17/22 08/17/22 08/16/22 History (Singulair) tramadol 50 mg tablet 50 mg PO Q6H PRN Pain 08/17/22 08/17/22 08/17/22 History venlafaxine 75 mg capsule,extended 75 mg PO DAILY 08/17/22 08/17/2208/17/22 History release 24 hr Allergies Allergy/AdvReac Type Severity Reaction Status Date / Time Sulfa (Sulfonamide Allergy Severe Hives Verified 08/30/22 09:27 Antibiotics) cephalexin Allergy Hives Verified 08/30/22 09:27 latex Allergy Hives Verified 08/30/22 09:27 mold Allergy Nasal Verified 08/30/22 09:27 Discharge red dye Allergy Hives Verified 08/30/22 09:27 adhesive tape AdvReac Rash Verified 08/30/22 09:27 ENVIRONMENTAL ALLERGENS Allergy Mild Nasal Uncoded 08/30/22 09:27 Discharge Review of Systems 2 Review of Systems: A 10 system review of systems was completed on the patient and is negative except for what is stated in the HPI. Nursing and ancillary documentation was reviewed. [facility] Past Medical History Medical History Shelly-Danlos syndrome Kidney stones Surgical History Surgical History History of surgery on lower extremity silas in R femur History of extraction of renal calculus History of ureteroscopy Family History Family History Mother Depression Patient's mother is in good health Family history of allergic disorder Family history of restless legs syndrome Father Patient's father is in good health Sibling Patient's brother is in good health Grandparent Family history of Alzheimer's disease Family history of malignant neoplasm of uterus, Onset Age: 72 Family history of malignant neoplasm of thyroid, Onset Age: 60 Social History Social History Smoking status: Never smoker Alcohol intake: never Living arrangements: with family Spiritual care concerns: No Exam 2 Narrative: GENERAL: Well-appearing, well-nourished, and in no acute distress. HEAD: Normocephalic, atraumatic. EYES: PERRLA and EOMI. ENT: Nares clear, no rhinorrhea or epistaxis. Mucous membranes moist. NECK: Supple. CHEST: Clear to auscultation. No respiratory distress. HEART: Regular rate and rhythm. No murmur heard. Normal peripheral pulses. ABDOMEN: Soft, nontender, nondistended, normal active bowel sounds. EXTREMITIES: Normal range of motion. No edema. SKIN: Warm, dry, no rash. NEURO: No focal deficits. Alert and oriented x3. PSYCH: Normal mood and affect. Course Vital Signs Vital signs: Vital Signs Pulse Rate 125 H 01/10/25 07:45 Respiratory Rate 16 01/10/25 07:45 Blood Pressure 113/93 H 01/10/25 07:45 Pulse Oximetry 100 01/10/25 07:45 Oxygen Delivery Room Air 01/10/25 07:45 Pulse Rate 134 H 01/10/25 07:52 Respiratory Rate 16 01/10/25 07:45 Blood Pressure 115/90 01/10/25 07:52 Pulse Oximetry 100 01/10/25 07:45 Oxygen Delivery Room Air 01/10/25 07:45 Medical Decision Making MDM Narrative Medical decision making narrative: Differential diagnosis includes dehydration, gastroenteritis Laboratory studies were obtained patient white count 11.1 hemoglobin is 15.9 electrolytes showed a BUN 18 CO2 of 17 glucose is 137 urinalysis showed 1+ ketones 5-9 white blood cells with some mucus present Patient received IV fluids and is feeling much better nausea has improved significantly The patient is able to tolerate p.o. intake and will be able to be discharged home Vital Signs Vital Signs: Vital Signs Pulse Rate 125 H 01/10/25 07:45 Respiratory Rate 16 01/10/25 07:45 Blood Pressure 113/93 H 01/10/25 07:45 Pulse Oximetry 100 01/10/25 07:45 Oxygen Delivery Room Air 01/10/25 07:45 Pulse Rate 134 H 01/10/25 07:52 Respiratory Rate 16 01/10/25 07:45 Blood Pressure 115/90 01/10/25 07:52 Pulse Oximetry 100 01/10/25 07:45 Oxygen Delivery Room Air 01/10/25 07:45 Lab Data 01/10/25 07:52 01/10/25 07:52 Labs: Lab Results 01/10/25 01/10/25 01/10/25 Range/Units 07:52 08:01 08:06 WBC 11.1 H (4.5-10.0) K/mm3 RBC 5.31 (4.2-5.4) M/mm3 Hgb 15.9 H D (12.0-15.0) g/dL Hct 48.4 H (37.0-47.0) % MCV 91.1 (80-100) fl MCH 29.9 (26-34) pg MCHC 32.9 (32-36) g/dl RDW 12.1 (11.5-14.5) % Plt Count 317 (150-375) k/mm3 MPV 8.8 (7.4-10.4) fl Immature Gran % (Auto) 0.4 (0-0.5) % Neut % (Auto) 91.3 H (45.5-73.1) % Lymph % (Auto) 5.4 L (18.3-44.2) % [place] % (Auto) 2.5 L (2.6-8.5) % Eos % (Auto) 0.1 (0-4.4) % Baso % (Auto) 0.3 (0.2-1.2) % Lymph # (Auto) 0.60 L (0.9-3.2) K/mm3 [place] # (Auto) 0.3 (0.1-0.6) K/mm3 Eos # (Auto) 0.0 (0-0.3) K/mm3 Baso # (Auto) 0.0 (0.0-0.1) K/mm3 Abs Immat Gran (auto) 0.04 H (0.00-0.031) K/mm3 Absolute Neuts (auto) 10.1 H (1.3-6.7) K/mm3 Absolute Nucleated RBC 0.000 (0.0-0.012) K/mm3 Nucleated RBC % 0.0 (0.0-0.2) % Sodium 139 (137-145) mmol/L Potassium 4.1 (3.4-5.0) mmol/L Chloride 105 (98-107) mmol/L Carbon Dioxide 17 L (22-30) mmol/L Anion Gap 17 H (4-12) mmol/L BUN 18 H D (7-17) mg/dL Creatinine 0.85 (0.7-1.0) mg/dL Estim Creat Clear Calc 76 ml/min Estimated GFR > 60 (59 - ) Glucose 137 H (65-110) mg/dL Calcium 9.3 (8.4-10.2) mg/dL Total Bilirubin 0.8 (0.2-1.3) mg/dL AST 25 (14-36) U/L ALT 27 (6-35) U/L Alkaline Phosphatase 48 (38-126) U/L Total Protein 8.0 (6.3-8.2) g/dL Albumin 4.8 (3.5-5.1) g/dL Lipase 40 (23-300) U/L Urine Color Dark yellow (Yellow) Urine Appearance Cloudy H (Clear) Urine pH 5.5 (5.0-9.0) Ur Specific [place] 1.027 (1.001-1.035) Urine Protein 1+ H (Negative) mg/dL Urine Glucose (UA) Negative (Negative) mg/dL Urine Ketones 1+ H (Negative) mg/dL Ur Blood (Man) Trace (Negative) Urine Nitrate Negative (Negative) Urine Bilirubin 1+ H (Negative) Urine Urobilinogen 1.0 (<2.0) mg/dL Add Ur Microanalysis Reviewed Leukocyte Esterase Rfl Negative (Negative) SUSHMA/UL Urine RBC 0-2 (0-2) /hpf Urine WBC 6-10 H (0-3) /hpf Ur Squamous Epith Cells Few (Few) /hpf Urine Bacteria None seen /hpf Urine Casts >20 Hyaline Casts 5-9 H (None) /lpf Urine Mucus Present /lpf POC Urine HCG, Qual Negative (Negative) Discharge Plan Discharge Clinical Impression: Gastroenteritis Patient Disposition: Home Condition: Stable Instructions: Antibiotic Form, Gastroenteritis (ED) Patient Language: Bulgarian Prescriptions: New ondansetron 4 mg tablet,disintegrating 4 mg PO Q8H PRN (Reason: nausea and vomiting) Qty: 10 0RF No Action ketorolac 10 mg tablet 10 mg PO Q6H PRN (Reason: pain) 3 Days Qty: 12 0RF Adult Multi plus Humble-3 1 tab-cap PO BID Adults Multivitamin 1 tab-cap PO DAILY cyclobenzaprine 10 mg tablet 10 mg PO TID PRN (Reason: spasm) venlafaxine 75 mg capsule,extended release 24hr 75 mg PO DAILY brompheniramine-PPA 4-25 mg Tablet 1 tablet PO DAILY tramadol 50 mg tablet 50 mg PO Q6H PRN (Reason: Pain) famotidine 20 mg Tablet 20 mg PO BID dicyclomine 20 mg tablet 20 mg PO Q6H PRN (Reason: Spasms) fexofenadine 30 mg Tablet 30 mg PO DAILY montelukast [Singulair] 10 mg tablet 10 mg PO HS drospirenone-ethinyl estradiol [Marley] 3-0.03 mg Tablet 1 tablet PO DAILY Zyrtec 10 mg Capsule 10 mg PO HS calcium-vitamin D3 1 tablet PO DAILY hydrocodone-acetaminophen 5-325 mg tablet 1 - 2 tablet PO Q6H PRN (Reason: pain) Qty: 20 0RF ciprofloxacin HCl 500 mg tablet 500 mg PO Q12H Qty: 6 0RF Follow-up/Referrals: Jose,Mervin Correia MD [Primary Care Provider] - Time of Disposition: 10:08
[2025-01-10 10:25] VITALS: BP 107/70; PULSE 104; RESP 16; O2SAT 97
== END 2025-01-10 10:24 | disposition home or self-care (01) ==
PROVIDERS: Emergency Provider Emergency Medicine; PCP Internal Medicine
DX: K52.9 Noninfective gastroenteritis and colitis, unspecified (principal); Z87.442 Personal history of urinary calculi; R82.998 Other abnormal findings in urine
CPT/HCPCS: 36415; 80053; 81001; 81025; 83690; 85025; 87086; 96361; 96374; 99284; J0500; J2405; J7030